=== PATIENT | female | born 1995 | race Caucasian/White ===

== ENCOUNTER 2020-03-14 07:25 | Outpatient (CLI) | payer OTHER ==
[~2020-03-14] VITALS: Ht 167.6 cm; Wt 48.7 kg
[~2020-03-14 07:25] MED LIST: ACID REDUCER; ATARAX 25MG25 MG/TAB PO; BACTRIM DS 8001 TAB PO; CEPHALEXIN500 M1 PO; CIPRODEX OT; DIFLUCAN150 MG PO; DOXYCYCLINE 10100 MG PO; DULCOLAX S10 MG/SUPP RC; FLAGYL 250250 MG/TAB PO; KLOR-CON 88 ME1 PO; LEVAQUIN 5500 MG/TA1 PO; LEVEMIR100 U/ML SQ; LEXAPRO 5MG5 MG PO; MIRALAX510G PO; MONODOX100 PO; MULTI VITAMINS1 TAB PO; NEURONTIN300 MG/CAP PO; NORCO 325 MG-51 TAB PO; NOVOLOG 100U100 U/M1 SQ; NOVOLOG FLEX100 U/ML SQ; POTASSIUM; TENORMIN 5050 MG/TAB PO; ULTRAM 50MG TAB50 MG PO; VITAMIN D 400400 IU PO; ZOFRAN ODT4 MG PO
[2020-03-14 08:29] VITALS: BP 107/71; PULSE 136
[2020-03-14] MEDS ORDERED: CELEBREX 200MG200 MG PO (08:40)
[2020-03-14] MEDS ORDERED: TYLENOL 325MG325 MG PO (08:41)
[2020-03-14] MEDS ORDERED: NEURONTIN300 MG/CAP PO (08:41)
[2020-03-14] MEDS ORDERED: MIRALAX PA17 GM/Dose PO (08:44)
[2020-03-14] MEDS ORDERED: CORLANOR5 MG PO (10:01)
[2020-03-14 10:10] VITALS: BP 143/90; PULSE 123
[2020-03-14 10:20] VITALS: BP 144/82; PULSE 126
--- NOTE | 2020-03-14 10:40 | NUR ---
Accucheck obtained,results reported to Dr castelan.No new orders.per Dr Castelan pt may go home and manage bs at home.
--- NOTE | 2020-03-14 10:50 | NUR ---
Discharge instructions given to pt.pt verbalizes understanding.INT removed,catheter tip intact.Pt escorted out via wheelchair.
--- NOTE | 2020-03-14 11:00 | NUR ---
Pt escorted out by this nurse via wheelchair.
== END 2020-03-14 11:27 | disposition home or self-care (01) ==
LOC: COL.CAR 07:25
DX: R00.0 Tachycardia, unspecified (principal); E11.9 Type 2 diabetes mellitus without complications; R55 Syncope and collapse; G89.29 Other chronic pain; Z92.21 Personal history of antineoplastic chemotherapy; Z88.1 Allergy status to other antibiotic agents; Z88.0 Allergy status to penicillin; Z88.8 Allergy status to other drugs, medicaments and biological substances; Z79.4 Long term (current) use of insulin
CPT/HCPCS: J2250

== ENCOUNTER 2020-04-10 07:54 | Emergency (ER) | payer OTHER ==
[~2020-04-10] VITALS: Ht 167.6 cm; Wt 52.7 kg
[~2020-04-10 07:54] MED LIST changes: -DOXYCYCLINE HY100 MG PO; -ELMIRON 10100 MG/CA1; -LANTUS100 U/ML SQ; -ZOFRAN 4MG T4 MG/TAB PO
[2020-04-10 07:57] VITALS: TEMP 98.2
[2020-04-10] MEDS ORDERED: DOXYCYCLINE HY100 MG PO (08:22)
[2020-04-10] MEDS ORDERED: LANTUS100 U/ML SQ (08:24)
[2020-04-10] MEDS ORDERED: ELMIRON 10100 MG/CA1 (08:25)
[2020-04-10 08:49] LABS: PH 5 (5-8); SQUAMOUS EPITHELIAL 0-2 /hpf; URINE APPEARANCE Clear; URINE BACTERIA Rare /hpf; URINE BILIRUBIN Negative (NEGATIVE); URINE BLOOD Negative (NEGATIVE); URINE COLOR Colorless; URINE GLUCOSE 1+ (NEGATIVE); URINE KETONE Negative (NEGATIVE); URINE LEUKOCYTE ESTERASE Negative (NEGATIVE); URINE NITRATE Negative (NEGATIVE); URINE PROTEIN(semi-quant) Negative (NEGATIVE); URINE RBC 0-2 /hpf; URINE UROBILINOGEN Negative (NEGATIVE); URINE WBC 0-2 /hpf
[2020-04-10 09:01] LABS: BASO % 0.4 % (0.0-2.0); EOS % 0.7 % (0-4.0); GRAN # 1.5 (1.4-6.5); GRAN % 27.7 % (42.2-75.2); HEMOGLOBIN 12.2 g/dl (12.5-16.0); LYMPH # 3.6 (1.2-3.4); LYMPH % 65.4 % (20.0-51.0); MEAN CELL VOLUME 93 fl (80.0-100.0); MEAN CORPUSCULAR HEMOGLOBIN 32 pg (27.0-31.0); MEAN CORPUSCULAR HGB CONC 34 g/dl (33.0-37.0); MEAN PLATELET VOLUME 10.4 fl (7.4-10.4); MONO # 0.3 (0.1-0.6); MONO % 5.6 % (1.7-9.3); PLATELET COUNT 293 K/mm3 (130-400); RED BLOOD COUNT 3.84 M/mm3 (4.10-5.30); REDCELL DISTRIBUTION WIDTH-CV 12.6 % (11.5-14.5)
[2020-04-10 09:03] LABS: HEMATOCRIT 35.7 % (37.0-47.0)
[2020-04-10 09:06] LABS: BILIRUBIN,TOTAL 0.4 mg/dL (0.0-1.0); CALCIUM 9.3 mg/dL (8.4-10.2); CREATININE, serum 0.33 (0.52-1.25); POTASSIUM 4.4 mmol/L (3.4-5.0); TOTAL PROTEIN 6.7 gm/dL (6.4-8.2)
[2020-04-10] MEDS ORDERED: NORCO 325 MG-51 TAB PO (09:43)
[2020-04-10] MEDS ORDERED: ZOFRAN 4MG T4 MG/TAB PO (09:43)
[2020-04-10 09:52] VITALS: BP 141/108; PULSE 103
[2020-04-10 10:23] LABS: COLLECTION METHOD CLEAN CATCH
== END 2020-04-10 09:55 | disposition home or self-care (01) ==
LOC: COL.ER 07:54
PROVIDERS: Nurse Practitioner Primary Care
DX: R10.31 Right lower quadrant pain (principal); E10.9 Type 1 diabetes mellitus without complications
CPT/HCPCS: J2270; J2405

== ENCOUNTER → 2020-04-10 | Outpatient (CLI) | payer OTHER ==
[~2020-04-10] MED LIST changes: +CELEBREX 200MG200 MG PO; +CORLANOR5 MG PO; +DOXYCYCLINE HY100 MG PO; +ELMIRON 10100 MG/CA1; +LANTUS100 U/ML SQ; +MIRALAX PA17 GM/Dose PO; +TYLENOL 325MG325 MG PO; +ZOFRAN 4MG T4 MG/TAB PO
== END ==
LOC: COL.RAD 06:43
DX: R16.0 Hepatomegaly, not elsewhere classified (principal); M54.5 Low back pain
CPT/HCPCS: Q9967

== ENCOUNTER 2020-05-05 20:05 | Emergency (ER) | payer OTHER ==
[~2020-05-05] VITALS: Ht 167.6 cm; Wt 54.5 kg
[~2020-05-05 20:05] MED LIST changes: +DOXYCYCLINE HY100 MG PO; +ELMIRON 10100 MG/CA1; +LANTUS100 U/ML SQ; +ZOFRAN 4MG T4 MG/TAB PO
[2020-05-05 20:10] VITALS: TEMP 99.7
[2020-05-05 20:37] LABS: BASO % 0.3 % (0.0-2.0); EOS # 0.1 (0.0-0.7); GRAN # 2.9 (1.4-6.5); GRAN % 41.1 % (42.2-75.2); HEMATOCRIT 39.3 % (37.0-47.0); HEMOGLOBIN 13.1 g/dl (12.5-16.0); LYMPH # 3.7 (1.2-3.4); LYMPH % 51.8 % (20.0-51.0); MEAN CELL VOLUME 94 fl (80.0-100.0); MEAN CORPUSCULAR HEMOGLOBIN 31 pg (27.0-31.0); MEAN CORPUSCULAR HGB CONC 33 g/dl (33.0-37.0); MEAN PLATELET VOLUME 10.4 fl (7.4-10.4); MONO # 0.4 (0.1-0.6); MONO % 5.5 % (1.7-9.3); PLATELET COUNT 289 K/mm3 (130-400); REDCELL DISTRIBUTION WIDTH-CV 12.6 % (11.5-14.5)
[2020-05-05 20:46] LABS: ALANINE AMINOTRANSFERASE 17 U/L (4-34); ALBUMIN 4.1 gm/dL (3.5-5.0); ALKALINE PHOSPHATASE 104 U/L (50-136); ANION GAP 10 mmol/L (7-16); AST,SGOT 23 U/L (15-37); BILIRUBIN,TOTAL 0.3 mg/dL (0.0-1.0); BLOOD UREA NITROGEN 18 mg/dL (7-17); CALCIUM 9.1 mg/dL (8.4-10.2); CARBON DIOXIDE 23 mmol/L (22-30); CHLORIDE 104 mmol/L (98-107); CREATININE, serum 0.43 (0.52-1.25); GLUCOSE 265 mg/dL (74-106); POTASSIUM 3.8 mmol/L (3.4-5.0); SODIUM 137 mmol/L (137-145)
[2020-05-05 21:11] LABS: LIPASE 36 U/L (23-300)
[2020-05-05 21:13] LABS: C-REACTIVE PROTEIN < 0.5 mg/dL (0.0-0.9)
[2020-05-05 21:28] LABS: ACETONE,SERUM NEGATIVE
[2020-05-06 02:35] VITALS: BP 137/100; PULSE 110
== END 2020-05-06 02:35 | disposition home or self-care (01) ==
LOC: COL.ER 20:05
PROVIDERS: Nurse Practitioner
DX: R10.31 Right lower quadrant pain (principal); R33.9 Retention of urine, unspecified; G89.29 Other chronic pain; E10.9 Type 1 diabetes mellitus without complications
CPT/HCPCS: J2060; J2270; J2405; J7030

== ENCOUNTER → 2020-05-18 | Emergency (ER) | payer OTHER ==
[~2020-05-18] VITALS: Ht 167.6 cm; Wt 54.5 kg
[2020-05-18 11:49] VITALS: BP 122/79; PULSE 111; TEMP 97.8
== END ==
LOC: COL.ER 11:43
DX: Z53.29 Procedure and treatment not carried out because of patient's decision for other reasons (principal); M54.5 Low back pain

== ENCOUNTER 2020-05-23 00:58 | Emergency (ER) | payer OTHER ==
[~2020-05-23] VITALS: Ht 167.6 cm; Wt 55.9 kg
[2020-05-23 01:05] VITALS: TEMP 97.5
[2020-05-23 01:37] LABS: COLLECTION METHOD CLEAN CATCH
[2020-05-23 01:41] LABS: BASO % 0.4 % (0.0-2.0); EOS % 0.3 % (0-4.0); GRAN % 40.9 % (42.2-75.2); HEMATOCRIT 38.7 % (37.0-47.0); HEMOGLOBIN 13.5 g/dl (12.5-16.0); LYMPH # 3.8 (1.2-3.4); LYMPH % 51.9 % (20.0-51.0); MEAN CELL VOLUME 89 fl (80.0-100.0); MEAN CORPUSCULAR HEMOGLOBIN 31 pg (27.0-31.0); MEAN CORPUSCULAR HGB CONC 35 g/dl (33.0-37.0); MEAN PLATELET VOLUME 11.3 fl (7.4-10.4); MONO # 0.5 (0.1-0.6); MONO % 6.4 % (1.7-9.3); PLATELET COUNT 282 K/mm3 (130-400); RED BLOOD COUNT 4.33 M/mm3 (4.10-5.30); REDCELL DISTRIBUTION WIDTH-CV 12.1 % (11.5-14.5)
[2020-05-23 01:50] LABS: PH 8 (5-8); SQUAMOUS EPITHELIAL 0-2 /hpf; URINE APPEARANCE Clear; URINE BACTERIA Rare /hpf; URINE BILIRUBIN Negative (NEGATIVE); URINE BLOOD Negative (NEGATIVE); URINE COLOR Straw; URINE GLUCOSE 3+ (NEGATIVE); URINE KETONE 1+ (NEGATIVE); URINE LEUKOCYTE ESTERASE Negative (NEGATIVE); URINE NITRATE Negative (NEGATIVE); URINE PROTEIN(semi-quant) Negative (NEGATIVE); URINE RBC 0-2 /hpf; URINE UROBILINOGEN Negative (NEGATIVE)
[2020-05-23 02:01] LABS: ACETONE,SERUM NEGATIVE
[2020-05-23 02:10] LABS: ALANINE AMINOTRANSFERASE 15 U/L (4-34); ALBUMIN 4.3 gm/dL (3.5-5.0); ALKALINE PHOSPHATASE 121 U/L (50-136); ANION GAP 10 mmol/L (7-16); AST,SGOT 22 U/L (15-37); BILIRUBIN,TOTAL 0.5 mg/dL (0.0-1.0); BLOOD UREA NITROGEN 16 mg/dL (7-17); CALCIUM 9.7 mg/dL (8.4-10.2); CARBON DIOXIDE 28 mmol/L (22-30); CHLORIDE 97 mmol/L (98-107); CREATININE, serum 0.44 (0.52-1.25); POTASSIUM 4.4 mmol/L (3.4-5.0); SODIUM 135 mmol/L (137-145); TOTAL PROTEIN 7.2 gm/dL (6.4-8.2)
[2020-05-23 02:21] LABS: GLUCOSE 558 mg/dL (74-106)
[2020-05-23 05:00] VITALS: BP 136/88; PULSE 127
== END 2020-05-23 05:05 | disposition home or self-care (01) ==
LOC: COL.ER 00:58
PROVIDERS: Emergency Medicine
DX: E10.65 Type 1 diabetes mellitus with hyperglycemia (principal); R11.2 Nausea with vomiting, unspecified; G89.29 Other chronic pain; R10.31 Right lower quadrant pain; R50.9 Fever, unspecified; Z32.02 Encounter for pregnancy test, result negative; Z79.4 Long term (current) use of insulin; Z88.0 Allergy status to penicillin; Z88.8 Allergy status to other drugs, medicaments and biological substances; Z88.1 Allergy status to other antibiotic agents
CPT/HCPCS: J1170; J1200; J1790; J1815; J7030

== ENCOUNTER 2020-09-11 15:15 | Outpatient (RCR) | payer BC, OTHER | END 2020-09-16 | disposition home or self-care (01) | LOC: WSC | DX: M54.10 Radiculopathy, site unspecified (principal) ==

== ENCOUNTER 2021-05-11 20:39 | Emergency (ER) | payer BC, OTHER ==
[~2021-05-11] VITALS: Ht 167.6 cm; Wt 52.3 kg
[2021-05-11 20:53] LABS: COLLECTION METHOD CLEAN CATCH
[2021-05-11 20:58] VITALS: TEMP 98.1
[2021-05-11 21:04] LABS: MUCOUS Present /lpf; PH 5 (5-8); SQUAMOUS EPITHELIAL 0-2 /hpf; URINE APPEARANCE Clear; URINE BACTERIA Rare /hpf; URINE BILIRUBIN Negative (NEGATIVE); URINE BLOOD 1+ (NEGATIVE); URINE COLOR Straw; URINE GLUCOSE 3+ (NEGATIVE); URINE KETONE 2+ (NEGATIVE); URINE LEUKOCYTE ESTERASE Negative (NEGATIVE); URINE NITRATE Negative (NEGATIVE); URINE PROTEIN(semi-quant) Negative (NEGATIVE); URINE UROBILINOGEN Negative (NEGATIVE)
[2021-05-11 21:19] LABS: BASO # 0.1 (0.0-0.2); BASO % 0.5 % (0.0-2.0); EOS % 0.2 % (0-4.0); GRAN # 7.7 (1.4-6.5); GRAN % 66.5 % (42.2-75.2); HEMATOCRIT 41.6 % (37.0-47.0); LYMPH # 3.2 (1.2-3.4); LYMPH % 27.6 % (20.0-51.0); MEAN CELL VOLUME 89 fl (80.0-100.0); MEAN CORPUSCULAR HEMOGLOBIN 30 pg (27.0-31.0); MEAN CORPUSCULAR HGB CONC 34 g/dl (33.0-37.0); MEAN PLATELET VOLUME 11.4 fl (7.4-10.4); MONO # 0.6 (0.1-0.6); MONO % 4.8 % (1.7-9.3); PLATELET COUNT 321 K/mm3 (130-400); RED BLOOD COUNT 4.68 M/mm3 (4.10-5.30); REDCELL DISTRIBUTION WIDTH-CV 13.2 % (11.5-14.5)
[2021-05-11 21:30] LABS: ALANINE AMINOTRANSFERASE 20 U/L (4-34); ALBUMIN 5.2 gm/dL (3.5-5.0); ALKALINE PHOSPHATASE 212 U/L (50-136); ANION GAP 27 mmol/L (7-16); AST,SGOT 25 U/L (15-37); BILIRUBIN,TOTAL 0.6 mg/dL (0.0-1.0); BLOOD UREA NITROGEN 16 mg/dL (7-17); CALCIUM 9.4 mg/dL (8.4-10.2); CHLORIDE 92 mmol/L (98-107); CREATININE, serum 0.75 (0.52-1.25); LIPASE 45 U/L (23-300); POTASSIUM 5.1 mmol/L (3.4-5.0); SODIUM 129 mmol/L (137-145); TOTAL PROTEIN 8.5 gm/dL (6.4-8.2)
[2021-05-11 21:32] LABS: CARBON DIOXIDE 10 mmol/L (22-30)
[2021-05-11 21:44] LABS: GLUCOSE 741 mg/dL (74-106)
[2021-05-11 21:53] LABS: ACETONE,SERUM SMALL
[2021-05-12 00:19] VITALS: BP 133/76; PULSE 121
== END 2021-05-12 00:19 | disposition short-term general hospital (02) ==
LOC: COL.ER 20:39
PROVIDERS: Emergency Medicine
DX: E10.10 Type 1 diabetes mellitus with ketoacidosis without coma (principal); Z20.822 Contact with and (suspected) exposure to COVID-19; Z79.4 Long term (current) use of insulin
CPT/HCPCS: J1815; J2270; J2405; J2765; J7030

== ENCOUNTER 2021-08-25 16:52 | Emergency (ER) | payer SELFPAY ==
[~2021-08-25] VITALS: Ht 167.6 cm; Wt 61.4 kg
[2021-08-25 17:13] VITALS: TEMP 98
[2021-08-25 19:19] LABS: ACETONE,SERUM SMALL
[2021-08-25 19:22] LABS: ALANINE AMINOTRANSFERASE 13 U/L (0-55); ALBUMIN 3.9 gm/dL (3.5-5.0); ALKALINE PHOSPHATASE 177 U/L (40-150); ANION GAP 12 mmol/L (7-16); AST,SGOT 17 U/L (5-34); BILIRUBIN,TOTAL 0.5 mg/dL (0.2-1.2); BLOOD UREA NITROGEN 14 mg/dL (7-19); CALCIUM 8.8 mg/dL (8.4-10.2); CARBON DIOXIDE 24 mmol/L (22-29); CHLORIDE 96 mmol/L (98-107); CREATININE, serum 0.93 mg/dL (0.57-1.11); POTASSIUM 4.2 mmol/L (3.5-4.5); SODIUM 132 mmol/L (136-145); TOTAL PROTEIN 7.2 gm/dL (6.2-8.1)
[2021-08-25 19:28] LABS: GLUCOSE 498 mg/dL (70-99)
[2021-08-25] MEDS ORDERED: FLEXERIL 1010 MG/TAB PO (20:31)
[2021-08-25 21:20] VITALS: BP 144/70; PULSE 76
== END 2021-08-25 21:20 | disposition home or self-care (01) ==
LOC: COL.ER 16:52
PROVIDERS: Nurse Practitioner
DX: S16.1XXA Strain of muscle, fascia and tendon at neck level, initial encounter (principal); S46.912A Strain of unspecified muscle, fascia and tendon at shoulder and upper arm level, left arm, initial encounter; E10.65 Type 1 diabetes mellitus with hyperglycemia; Z79.4 Long term (current) use of insulin; Z86.69 Personal history of other diseases of the nervous system and sense organs; Y04.0XXA Assault by unarmed brawl or fight, initial encounter; Y92.59 Other trade areas as the place of occurrence of the external cause; Y99.0 Civilian activity done for income or pay
CPT/HCPCS: J1815; J7030

== ENCOUNTER 2021-09-30 23:29 | Inpatient (IN) | payer BC ==
[~2021-09-30] VITALS: Ht 167.6 cm; Wt 64.5 kg
[~2021-09-30 23:29] MED LIST changes: +FLEXERIL 1010 MG/TAB PO
[2021-10-01] VITALS (172 sets, daily range): BP systolic 109–145; BP diastolic 58–107; PULSE 119–127; TEMP 98–101.6; O2SAT 93–100
[2021-10-01 00:58] LABS: BASO % 0.5 % (0.0-2.0); EOS % 0.3 % (0.0-4.0); GRAN # 4.2 K/mm3 (1.4-6.5); GRAN % 73.3 % (42.2-75.2); HEMATOCRIT 40.2 % (37.0-47.0); HEMOGLOBIN 13.7 g/dl (12.5-16.0); LYMPH # 0.9 K/mm3 (1.2-3.4); LYMPH % 15.6 % (20.0-51.0); MEAN CELL VOLUME 90 fl (80.0-100.0); MEAN CORPUSCULAR HEMOGLOBIN 31 pg (27-31); MEAN CORPUSCULAR HGB CONC 34 g/dl (33.0-37.0); MEAN PLATELET VOLUME 10.7 fl (7.4-10.4); MONO # 0.5 K/mm3 (0.1-0.6); MONO % 9.3 % (1.7-9.3); PLATELET COUNT 272 K/mm3 (130-400); RED BLOOD COUNT 4.49 M/mm3 (4.10-5.30); REDCELL DISTRIBUTION WIDTH-CV 14.8 % (11.5-14.5)
[2021-10-01 01:13] LABS: COLLECTION METHOD CLEAN CATCH
[2021-10-01 01:17] LABS: ALBUMIN 4.2 gm/dL (3.5-5.0); BILIRUBIN,TOTAL 0.3 mg/dL (0.2-1.2); C-REACTIVE PROTEIN 0.26 mg/dL (0.00-0.50); CALCIUM 8.6 mg/dL (8.4-10.2); CREATININE, serum 1.37 mg/dL (0.57-1.11); MAGNESIUM 1.9 mg/dL (1.6-2.6); TOTAL PROTEIN 7.8 gm/dL (6.2-8.1)
[2021-10-01 01:18] LABS: PH 5 (5-8); SQUAMOUS EPITHELIAL 0-2 /hpf (0-10); URINE APPEARANCE Clear (CLEAR/HAZY); URINE BACTERIA None Seen /hpf (NONE SEEN); URINE BILIRUBIN Negative (NEGATIVE); URINE BLOOD 2+ (NEGATIVE); URINE GLUCOSE 3+ (NEGATIVE); URINE KETONE 2+ (NEGATIVE); URINE LEUKOCYTE ESTERASE Negative (NEGATIVE); URINE NITRATE Negative (NEGATIVE); URINE PROTEIN(semi-quant) Negative (NEGATIVE); URINE UROBILINOGEN Negative (NEGATIVE)
[2021-10-01 01:21] LABS: URINE COLOR Yellow (YELLOW)
[2021-10-01 01:53] LABS: ARTERIAL BLD GAS O2 SATURATION 97.6 % (92-100); ARTERIAL BLD GAS TCO2 CT 7.4; ARTERIAL BLOOD GAS BASE EXCESS -18.9 (-2-2); ARTERIAL BLOOD GAS HCO3 6.9 meq/L (22-26); ARTERIAL BLOOD GAS PO2 108.3 mmHg (80-100)
[2021-10-01 01:54] LABS: ARTERIAL BLOOD GAS PCO2 17.8 mmHg (35-45)
[2021-10-01 05:11] LABS: CALCIUM 7.7 mg/dL (8.4-10.2); CREATININE, serum 0.95 mg/dL (0.57-1.11); POTASSIUM 3.5 mmol/L (3.5-4.5)
[2021-10-01 09:03] LABS: CALCIUM 7.5 mg/dL (8.4-10.2); CREATININE, serum 0.81 mg/dL (0.57-1.11); POTASSIUM 3.5 mmol/L (3.5-4.5)
[2021-10-01 12:28] LABS: CALCIUM 7.4 mg/dL (8.4-10.2); CREATININE, serum 0.75 mg/dL (0.57-1.11); POTASSIUM 3.8 mmol/L (3.5-4.5)
--- NOTE | 2021-10-01 19:47 | NUR ---
PM ASSESSMENT COMPLETE. PT SLEEPING, AROUSABLE BUT DROWSY. ANSWERS QUESTIONS APPROPRIATELY. REPORTS SOME PAIN TO SIDE. HR NOTED TO BE 125, TEMP 101.6. 1000MG TYLENOL GIVEN PER PRN ORDER. PT ALSO NAUSEATED, NO EMESIS. ZOFRAN GIVEN AT THIS TIME. WILL MONITOR FOR EFFECT. PULSE OXIMETRY CHECKED WITH HANDHELD DEVICE, 97% ON ROOM AIR (PT STATES DOES NOT WANT TO WEAR FINGER PROBE). WILL CONTINUE TO MONITOR.
[2021-10-01] MEDS ORDERED: NOVOLOG 100U100 U/M1 SQ (20:57)
[2021-10-01 21:41] LABS: CALCIUM 7.5 mg/dL (8.4-10.2); CREATININE, serum 0.89 mg/dL (0.57-1.11); POTASSIUM 3.7 mmol/L (3.5-4.5)
[2021-10-01 23:03] LABS: CALCIUM 7.5 mg/dL (8.4-10.2); CREATININE, serum 0.92 mg/dL (0.57-1.11); POTASSIUM 3.6 mmol/L (3.5-4.5)
[2021-10-02] VITALS (253 sets, daily range): BP systolic 115–139; BP diastolic 53–100; PULSE 71–120; TEMP 98.1–99.7; O2SAT 96–100
[2021-10-02 02:44] LABS: CALCIUM 7.7 mg/dL (8.4-10.2); CREATININE, serum 0.77 mg/dL (0.57-1.11); POTASSIUM 3.4 mmol/L (3.5-4.5)
--- NOTE | 2021-10-02 07:10 | NUR ---
RECEIVED REPORT FROM INDIRA BUENROSTRO. PT ON RA. AMBULATES BY SELF TO TOILET. VSS. CALL LIGHT WITHIN REACH.
--- NOTE | 2021-10-02 09:00 | NUR ---
SPOKE WITH DR MILTON AND BRANDON NOEL ABOUT GETTING NEW LABS THIS AM AND THEN IF SHE CAN TRANSFER UPSTAIRS IF OK. ALSO LET PROVIDERS KNOW THAT PT IS C/O A LOT OF RT EAR PAIN.
[2021-10-02 09:52] LABS: BASO % 0.5 % (0.0-2.0); EOS % 0.2 % (0.0-4.0); GRAN # 2.1 K/mm3 (1.4-6.5); GRAN % 48.6 % (42.2-75.2); LYMPH # 1.7 K/mm3 (1.2-3.4); LYMPH % 40.8 % (20.0-51.0); MEAN CELL VOLUME 88 fl (80.0-100.0); MEAN CORPUSCULAR HGB CONC 35 g/dl (33.0-37.0); MEAN PLATELET VOLUME 10.7 fl (7.4-10.4); MONO # 0.4 K/mm3 (0.1-0.6); MONO % 9.7 % (1.7-9.3); PLATELET COUNT 175 K/mm3 (130-400); REDCELL DISTRIBUTION WIDTH-CV 15.1 % (11.5-14.5)
[2021-10-02 09:53] LABS: HEMATOCRIT 33.4 % (37.0-47.0); HEMOGLOBIN 11.7 g/dl (12.5-16.0); MEAN CORPUSCULAR HEMOGLOBIN 31 pg (27-31)
--- NOTE | 2021-10-02 10:08 | NUR ---
REPORT GIVEN TO INDIRA BOOKER. PT TRANSFERRED ON RA VIA WC TO 357. ALL PERSONAL BELONGINGS SENT WITH PT.
[2021-10-02 10:09] LABS: CALCIUM 7.5 mg/dL (8.4-10.2); CREATININE, serum 0.81 mg/dL (0.57-1.11); POTASSIUM 3.6 mmol/L (3.5-4.5)
--- NOTE | 2021-10-02 19:39 | NUR ---
PT HAS HAD UNEVENTFUL DAY. SHE HAS COMPLAINED OF MILD PAIN IN HER EAR FROM HER EAR INFECTION AND HAS HAD SOME DRAINAGE THAT "GAGS HER". OTHER THAN THOSE ISSUES, THERE IS NO OTHER CONCERNS.
--- NOTE | 2021-10-02 21:35 | NUR ---
ALERT AND OX4. RATING PAIN /10 TO RT EAR. EAR GTT AND PAPO FOR PAIN. PM MEDS GIVEN. REF MID HEPARIN TONIGHT, IT "HURTS". CALL LIGHT WI REACH. IV FLUIDS INFUSING PER ORDER. CALL LIGHT WI REACH.
[2021-10-03 00:13] VITALS: BP 145/91; PULSE 115; TEMP 99.1
[2021-10-03 04:44] VITALS: BP 149/98; PULSE 107; TEMP 98.9
[2021-10-03 08:00] VITALS: BP 138/83; PULSE 81; TEMP 97.6
--- NOTE | 2021-10-03 08:00 | NUR ---
Patient laying in bed with complaints of pain in right ear. Nurse informed the patient of the ear drops. Will notified the doctor. A&Ox4. VSS. IV CDI, fluids infusing. Denies discomfort. Nurse encouraging patient to increase PO intake. Patient verbalized an understanding. Droplet/contact precautions in place. No further needs expressed. Call light within reach
[2021-10-03 12:00] VITALS: BP 149/96; PULSE 107; TEMP 98.1
--- NOTE | 2021-10-03 14:17 | NUR ---
The patient is COVID positive. SW contacted the patient to discuss discharge plan. The patient lives in [place] with a friend. She reports independence with ADLs and does not have any DME. The patient's PCP is Dr. Tanvi Uriarte on [address] and she receives her medications from [facility] in [facility]. She reports no difficulties obtaining her meds. She states that Dr. Rosa Ordaz in [place] manages her diabetes. The patient does not have a DPOA-HC in EMR, but she states that she does have one completed and that it designates her father, Rachid Figueroa (ph#[phone], [place]). She is unsure where the form is at. SW inquired if she would be interested in completing a new one while here. She declined. The patient reports that her EMR contacts: Santana Fernandes (ph#[phone]), is her boyfriend and Mily Duke is her good friend. The patient plans on returning home with her friend upon discharge. No additional needs at this time. *Discharge plan: home with friend*
--- NOTE | 2021-10-03 18:41 | NUR ---
Patient has had several episodes of nausea and vomitting. Scheduled nausea medication given. Patient A&Ox4. VSS. IV CDI, fluids infusing. Complaints of RT ear pain, ENT consulted and placed a wick in the right ear. Droplet/contact precautions in place. No further needs expressed. Call light within reach
[2021-10-03 19:53] VITALS: BP 147/99; PULSE 90; TEMP 98
--- NOTE | 2021-10-03 21:37 | NUR ---
ALERT AND OX4. DENIES SOA CHEST PAIN OR DIZZY. EAR WICK PLACED TODAY AND ANTIBOITICS, STATES FEELING A LITTLE BETTER. WANTS A SHOWER TONIGHT. IVF GOING PER ORDER. CALL LIGHT WI REACH. NEEDS MET.
--- NOTE | 2021-10-03 21:42 | NUR ---
pt did refuse heparin for the night dose. nausea is improving was able to hold dinner down.
[2021-10-04 00:28] VITALS: BP 123/81; PULSE 97; TEMP 98.4
--- NOTE | 2021-10-04 04:24 | NUR ---
PT C/O RT EAR PAIN THINKS IT MORE RELATED TO WICK IN EAR STATES IT PUTS PRESSURE THERE AND I CANT LAY ON IT. WANTS IT REMOVED. CALLED WILLIAM TAYLOR, JANUARY REMOVED. ENC PAIN MEDICINE. PT TOOK W ZOFRAN AND SNACK.
[2021-10-04 04:54] VITALS: BP 147/89; PULSE 94; TEMP 98.5
--- NOTE | 2021-10-04 06:04 | NUR ---
RESTED THOUGHT NIGHT WITHOUT INCIDENT. PAIN MEDS WORKING FOR EAR PAIN. HOPES TO GO HOME TODAY. NEEDS MET.
--- NOTE | 2021-10-04 08:01 | NUR ---
Pt. progressing w/ plan of care. Pt. reports ear pain this AM and requesting tylenol. Pt. also reporting nausea. Pt. reports she has been refusing the heparin. Dr. Aleman notified regarding pt.'s tylenol request and this RN informed pt. she has been refusing heparin. New orders obtained. Pt. requesting sprite zero. Plan for this RN to give AM meds, all other needs addressed.
[2021-10-04 08:10] VITALS: BP 131/86; PULSE 95; TEMP 97.9
[2021-10-04 12:27] VITALS: BP 119/74; PULSE 91; TEMP 97.7
--- NOTE | 2021-10-04 16:02 | NUR ---
Ear wick was removed this AM prior to this nurse caring for patient. This was reviewed with BRANDON Padron, plan for Nereida to let this RN know what Dr. Aleman says regarding pt.'s ear wick.
[2021-10-04 16:06] VITALS: BP 123/78; PULSE 95; TEMP 98.7
--- NOTE | 2021-10-04 18:53 | NUR ---
Afternoon 1600 blood sugar was 88. Pt. vomited and zofran given with good effect. Pt. reports she may "go down" even more. This RN provided pt. juice and snacks. Pt. drank 4oz juice.
[2021-10-04 19:50] VITALS: BP 135/89; PULSE 85; TEMP 98
--- NOTE | 2021-10-04 20:58 | NUR ---
ALERT AND OX4. DNIES SOA CHEST PAIN OR DIZZY. SOME NAUSEA TODAY RELATED TO ANTIBOTIC SHE BELIEVES. PM MEDS GIVEN. SHOWERING. CALL LIGHT WI REACH.
[2021-10-05 00:31] VITALS: BP 143/92; PULSE 99; TEMP 98.2
--- NOTE | 2021-10-05 03:39 | NUR ---
patient rested quietly throughout the night cleaner, call bello w/i reach, no s/s of hypo/hyper glycemia, indendent in room, updated on plan of care, will continue to monitor.
[2021-10-05 04:42] VITALS: BP 138/85; PULSE 95; TEMP 98
[2021-10-05 08:13] VITALS: BP 141/95; PULSE 96; TEMP 98
--- NOTE | 2021-10-05 08:41 | NUR ---
Pt. reporting pain to her right ear. Pt. reports drainage from overnight, light yellow in color noted on tissues. Pt.'s CBG this am was 82, Dr. Gee notified, Dr. Gee would like pt. to get scheduled insulin with meal- five units, and hold sliding scale. Dr. Gee notified about pt.'s ear, plan for Dr. Gee to discuss with this RN during rounds.
--- NOTE | 2021-10-05 09:54 | NUR ---
Pt. reports her ear is throbbing and she is crying in pain. PRN oxycodone administered w/ PRN zofran because pt. reports oxycodone makes her nauseated. Pt. reports ear is "popping" as well. Dr. Gee notified on the telephone. Dr. Gaffney notified on the telephone. Dr. Gaffney reports wick should not have been removed, however, the ear drops will help. Dr. Gaffney reports the ear drops will not likely cause pain and the pt. should receive the drops in order to get better. Plan for this RN to encourage pt. to take the ear drops and update Dr. Gee with plan of care.
[2021-10-05 10:58] VITALS: BP 121/79; PULSE 99; TEMP 98.1
[2021-10-05] MEDS ORDERED: LEVAQUIN 5500 MG/TA1 PO (16:01)
[2021-10-05] MEDS ORDERED: CIPRODEX OT (16:06)
[2021-10-05] MEDS ORDERED: NOVOLOG 100U100 U/M1 SQ ×2 (16:07→17:50)
[2021-10-05] MEDS ORDERED: ROXICODONE 55 MG/TAB PO (16:10)
[2021-10-05 16:43] VITALS: BP 134/97; PULSE 103; TEMP 98.1
[2021-10-05] MEDS ORDERED: B-D SAFETY GLID1 DE1 SQ (17:50)
[2021-10-05] MEDS ORDERED: GLUCOSE TEST ST1 DEV MC (17:50)
[2021-10-05] MEDS ORDERED: LANCETS MC (17:50)
[2021-10-05] MEDS ORDERED: FREESTYLE PREC1 EAC5 MC (17:50)
[2021-10-05] MEDS ORDERED: BD ALCOHOL1 SWA MC (17:50)
[2021-10-05] MEDS ORDERED: GLUCAGON EMERGEN1 M1 SQ (17:50)
[2021-10-05] MEDS ORDERED: GLUTOSE 1515 GM PO ×2 (17:50)
--- NOTE | 2021-10-05 18:16 | NUR ---
Pt. discharged home. Both IV's removed, site c/d/i. All paperwork reviewed with patient. All questions answered. Pt. left floor with [facility] staff member Jessica.
== END 2021-10-05 18:30 | disposition home or self-care (01) | DRG 637 ==
LOC: COL.ER 23:29 → ICU 10-01 02:16 → MEDICAL 10-02 10:19
PROVIDERS: Emergency Medicine; Nurse Practitioner Family; Physician Assistant; Student in an Organized Health Care Education/Training Program; ADMIT Internal Medicine
DX: E10.10 Type 1 diabetes mellitus with ketoacidosis without coma (principal); U07.1 COVID-19; N17.9 Acute kidney failure, unspecified; G89.29 Other chronic pain; N30.10 Interstitial cystitis (chronic) without hematuria; H60.91 Unspecified otitis externa, right ear; J32.4 Chronic pansinusitis; H70.91 Unspecified mastoiditis, right ear; H66.91 Otitis media, unspecified, right ear; R60.9 Edema, unspecified; E87.6 Hypokalemia; Z88.0 Allergy status to penicillin; Z23 Encounter for immunization
CPT/HCPCS: 99223-AI; 99232-AI; 99233-AI; 99239; J1644; J1815; J1956; J2270; J2405; J3010; J3475; J3480; J7030; J7120; J8540; Q9967

== ENCOUNTER 2021-12-02 17:15 | Inpatient (IN) | payer BC ==
[2021-12-02] VITALS (99 sets, daily range): BP systolic 119; BP diastolic 80; PULSE 111; TEMP 98.4; O2SAT 95–100
[~2021-12-02] VITALS: Ht 167.6 cm; Wt 63.2 kg
[~2021-12-02 17:15] MED LIST changes: +B-D SAFETY GLID1 DE1 SQ; +BD ALCOHOL1 SWA MC; +FREESTYLE PREC1 EAC5 MC; +GLUCAGON EMERGEN1 M1 SQ; +GLUCOSE TEST ST1 DEV MC; +GLUTOSE 1515 GM PO; +LANCETS MC; +ROXICODONE 55 MG/TAB PO
[2021-12-02 17:42] LABS: BASO % 0.4 % (0.0-2.0); EOS % 0.1 % (0.0-4.0); GRAN # 7.4 K/mm3 (1.4-6.5); HEMATOCRIT 43.2 % (37.0-47.0); LYMPH # 2.8 K/mm3 (1.2-3.4); LYMPH % 25.9 % (20.0-51.0); MEAN CELL VOLUME 92 fl (80.0-100.0); MEAN CORPUSCULAR HEMOGLOBIN 32 pg (27-31); MEAN CORPUSCULAR HGB CONC 35 g/dl (33.0-37.0); MEAN PLATELET VOLUME 11.2 fl (7.4-10.4); MONO # 0.6 K/mm3 (0.1-0.6); MONO % 5.1 % (1.7-9.3); PLATELET COUNT 308 K/mm3 (130-400); REDCELL DISTRIBUTION WIDTH-CV 13.2 % (11.5-14.5)
[2021-12-02 17:59] LABS: BILIRUBIN,TOTAL 0.3 mg/dL (0.2-1.2); C-REACTIVE PROTEIN 0.13 mg/dL (0.00-0.50); CALCIUM 9.2 mg/dL (8.4-10.2); CREATININE, serum 1.35 mg/dL (0.57-1.11); POTASSIUM 3.8 mmol/L (3.5-4.5)
[2021-12-02 18:10] LABS: COLLECTION METHOD CLEAN CATCH
[2021-12-02 18:20] LABS: MUCOUS Present (NOT PRESENT); PH 5 (5-8); URINE APPEARANCE Clear (CLEAR/HAZY); URINE BACTERIA None Seen /hpf (NONE SEEN); URINE BILIRUBIN Negative (NEGATIVE); URINE BLOOD 2+ (NEGATIVE); URINE COLOR Straw (YELLOW); URINE GLUCOSE 3+ (NEGATIVE); URINE KETONE 2+ (NEGATIVE); URINE LEUKOCYTE ESTERASE Negative (NEGATIVE); URINE NITRATE Negative (NEGATIVE); URINE PROTEIN(semi-quant) Negative (NEGATIVE); URINE RBC None Seen /hpf (0-2); URINE UROBILINOGEN Negative (NEGATIVE)
--- NOTE | 2021-12-02 20:50 | NUR ---
PT ARRIVED FROM ER VIA STRETCHER. PT MOVED TO ICU BED AND MONITORING. PT C/O STOMACH PAIN DURING MOVE TO BED, HOWEVER QUICKLY BACK TO SLEEP. ABLE TO AROUSE FOR FEW ADMISSION QUESTIONS, BUT VERY DROWSY. VSS WITH HR TACHY, RESP EVEN AND UNLABORED AND O2 SAT STABLE ON RA. INSULIN CURRENTLY INFUSING AT 5 UN/HR, WILL FOLLOW WITH Q1HR FS.
[2021-12-02] MEDS ORDERED: BACTRIM DS 8001 TAB PO (20:53)
--- NOTE | 2021-12-02 21:00 | NUR ---
PT REFUSED MRSA SWAB OF NARES AT THIS TIME.
[2021-12-02 21:21] LABS: PHOSPHOROUS 3.3 mg/dL (2.3-4.7)
[2021-12-02 22:03] LABS: CALCIUM 7.9 mg/dL (8.4-10.2); CREATININE, serum 0.96 mg/dL (0.57-1.11); POTASSIUM 3.9 mmol/L (3.5-4.5)
[2021-12-03] VITALS (308 sets, daily range): BP systolic 110–130; BP diastolic 71–93; PULSE 94–109; TEMP 97.2–98.5; O2SAT 67–100
[2021-12-03 01:50] LABS: CALCIUM 7.9 mg/dL (8.4-10.2); CREATININE, serum 0.82 mg/dL (0.57-1.11); POTASSIUM 3.9 mmol/L (3.5-4.5)
[2021-12-03 05:34] LABS: CALCIUM 8.1 mg/dL (8.4-10.2); CREATININE, serum 0.83 mg/dL (0.57-1.11); POTASSIUM 3.8 mmol/L (3.5-4.5)
--- NOTE | 2021-12-03 09:17 | NUR ---
steelworker met with patient to complete intake. Patient currently lives with roommates here in [place]. Patient is independent with her ADL's and does not utilize any DME to assist with ambulation. Patient has no home oxygen needs. Her PCP is Dr. Tanvi Uriarte and she uses [facility] for medications. Patient's legal NOK established is her ex (Mike Hope [phone]) who she is still legally to. Explained to the patient that he is her legal DPOA-HC at this time sice they are still . She verbalizes her understanding of this and does not wish to establish a new DPOA-HC at this time. Patient is planning on moving to the floor later today.
--- NOTE | 2021-12-03 13:45 | NUR ---
Pt arrived to room 311 from ICU at this time. Oriented pt and visitor to room. Med rec updated. Assessment complete. Pt A&Ox4. Vitals stable. Heart RRR. Lungs CTA. Skin CDI. Denies pain, nausea, dizziness, or other concerns. Denies needs at this time. Continuing to monitor.
--- NOTE | 2021-12-03 18:32 | NUR ---
Pt had uneventful afternoon. Last blood sugar 177 and 4 units of insulin given with dinner per orders. Requests PB&J sandwich as bedtime snack w/insulin. Denies further needs. Report given to retail shift manager RN.
[2021-12-04 00:41] VITALS: BP 104/66; PULSE 103; TEMP 97.9
[2021-12-04 04:20] VITALS: BP 133/90; PULSE 101; TEMP 97.7
--- NOTE | 2021-12-04 06:17 | NUR ---
PT HAD UNEVENTFUL NIGHT.
[2021-12-04 06:26] LABS: MEAN CELL VOLUME 95 fl (80.0-100.0); MEAN CORPUSCULAR HGB CONC 34 g/dl (33.0-37.0); MEAN PLATELET VOLUME 11.1 fl (7.4-10.4); PLATELET COUNT 215 K/mm3 (130-400); RED BLOOD COUNT 3.86 M/mm3 (4.10-5.30); REDCELL DISTRIBUTION WIDTH-CV 13.5 % (11.5-14.5)
[2021-12-04 06:45] LABS: CALCIUM 8.2 mg/dL (8.4-10.2); CREATININE, serum 0.65 mg/dL (0.57-1.11); POTASSIUM 3.6 mmol/L (3.5-4.5)
[2021-12-04 07:12] LABS: HEMATOCRIT 36.5 % (37.0-47.0); HEMOGLOBIN 12.4 g/dl (12.5-16.0); MEAN CORPUSCULAR HEMOGLOBIN 32 pg (27-31)
[2021-12-04 08:12] VITALS: BP 127/95; PULSE 104; TEMP 97.5
--- NOTE | 2021-12-04 08:54 | NUR ---
PT RESTING IN BED. MORNING MEDICATIONS GIVEN BY FRONT DESK CLERK. SHIFT ASSESSMENT COMPLETED. PT DENIES ANY PAIN OR NEEDS AT THIS TIME. UPDATED PT ON THE PLAN FOR THE DAY. PT EAGER TO D/C HOME. WILL CONTINUE TO MONITOR.
--- NOTE | 2021-12-04 09:20 | NUR ---
Initial visit; Patient resting, Weight Loss Physician offered God's blessings and patient was receptive to Weight Loss Physician keeping her in her prayers.
[2021-12-04 12:11] VITALS: BP 125/89; PULSE 100; TEMP 98
--- NOTE | 2021-12-04 12:47 | NUR ---
IV D/C. DISCHARGE INSTRUCTIONS GIVEN. WILL ESCORT PT DOWN.
--- NOTE | 2021-12-04 13:21 | NUR ---
Primary nurse was assisted with [phone] patient care by [employer] student Liz Jules and [employer] instructor Christina Mullen MSN, RN
== END 2021-12-04 12:48 | disposition home or self-care (01) | DRG 638 ==
LOC: COL.ER 17:15 → ICU 19:53 → MEDICAL 12-03 15:33
PROVIDERS: Nurse Practitioner Primary Care; Student in an Organized Health Care Education/Training Program; ADMIT Internal Medicine
DX: E10.10 Type 1 diabetes mellitus with ketoacidosis without coma (principal); N17.9 Acute kidney failure, unspecified; N30.10 Interstitial cystitis (chronic) without hematuria; R00.0 Tachycardia, unspecified; Z88.0 Allergy status to penicillin; Z23 Encounter for immunization
CPT/HCPCS: 99232-AI; 99239; J1815; J2270; J2405; J3480; J7030; Q9967

== ENCOUNTER → 2022-01-07 | Outpatient (CLI) | payer BC ==
[~2022-01-07] MED LIST changes: +FLAGYL500 MG PO; +MACROBID 1100 MG/CAP PO; +NOVOLIN N100 UNIT/1 SQ; +OMNICEF 300MG300 MG PO
== END ==
LOC: COL.RAD 10:46
DX: O20.0 Threatened abortion (principal); O23.40 Unspecified infection of urinary tract in pregnancy, unspecified trimester; N39.0 Urinary tract infection, site not specified; Z3A.00 Weeks of gestation of pregnancy not specified

== ENCOUNTER 2022-02-03 21:47 | Emergency (ER) | payer BC ==
[~2022-02-03] VITALS: Ht 167.6 cm; Wt 62.7 kg
[~2022-02-03 21:47] MED LIST changes: -FLAGYL500 MG PO; -NOVOLIN N100 UNIT/1 SQ; -OMNICEF 300MG300 MG PO
[2022-02-03 21:56] VITALS: TEMP 98.2
[2022-02-03 22:31] LABS: COLLECTION METHOD CLEAN CATCH
[2022-02-03] MEDS ORDERED: NOVOLIN N100 UNIT/1 SQ (22:32)
[2022-02-03 22:39] LABS: PH 6 (5-8); SQUAMOUS EPITHELIAL None Seen /hpf (0-10); URINE APPEARANCE Clear (CLEAR/HAZY); URINE BACTERIA Rare /hpf (NONE SEEN); URINE BILIRUBIN Negative (NEGATIVE); URINE BLOOD 1+ (NEGATIVE); URINE COLOR Yellow (YELLOW); URINE GLUCOSE 3+ (NEGATIVE); URINE KETONE Negative (NEGATIVE); URINE LEUKOCYTE ESTERASE Trace (NEGATIVE); URINE NITRATE Positive (NEGATIVE); URINE PROTEIN(semi-quant) Negative (NEGATIVE); URINE RBC 0-2 /hpf (0-2); URINE UROBILINOGEN Negative (NEGATIVE)
[2022-02-03 22:46] LABS: BASO % 0.3 % (0.0-2.0); EOS % 0.3 % (0.0-4.0); GRAN # 7.2 K/mm3 (1.4-6.5); GRAN % 62.6 % (42.2-75.2); LYMPH # 3.4 K/mm3 (1.2-3.4); LYMPH % 29.1 % (20.0-51.0); MEAN CELL VOLUME 91 fl (80.0-100.0); MEAN CORPUSCULAR HEMOGLOBIN 32 pg (27-31); MEAN CORPUSCULAR HGB CONC 35 g/dl (33.0-37.0); MEAN PLATELET VOLUME 10.7 fl (7.4-10.4); MONO # 0.9 K/mm3 (0.1-0.6); MONO % 7.4 % (1.7-9.3); PLATELET COUNT 278 K/mm3 (130-400); RED BLOOD COUNT 3.81 M/mm3 (4.10-5.30); REDCELL DISTRIBUTION WIDTH-CV 13.1 % (11.5-14.5)
[2022-02-03 22:47] LABS: HEMATOCRIT 34.7 % (37.0-47.0)
[2022-02-03] MEDS ORDERED: FLAGYL500 MG PO (22:48)
[2022-02-03] MEDS ORDERED: OMNICEF 300MG300 MG PO (22:59)
[2022-02-03 23:05] LABS: BILIRUBIN,TOTAL 0.3 mg/dL (0.2-1.2); CALCIUM 8.9 mg/dL (8.4-10.2); CREATININE, serum 0.74 mg/dL (0.57-1.11); POTASSIUM 3.7 mmol/L (3.5-4.5); TOTAL PROTEIN 6.9 gm/dL (6.2-8.1)
[2022-02-03 23:47] VITALS: BP 111/70; PULSE 110
== END 2022-02-03 23:53 | disposition home or self-care (01) ==
LOC: COL.ER 21:47
PROVIDERS: Nurse Practitioner Primary Care
DX: O23.591 Infection of other part of genital tract in pregnancy, first trimester (principal); B96.89 Other specified bacterial agents as the cause of diseases classified elsewhere; O23.41 Unspecified infection of urinary tract in pregnancy, first trimester; Z28.310 Unvaccinated for COVID-19; Z3A.12 12 weeks gestation of pregnancy
CPT/HCPCS: J7030

== ENCOUNTER 2022-02-21 20:14 | Emergency (ER) | payer BC ==
[~2022-02-21] VITALS: Ht 167.6 cm; Wt 56.8 kg
[~2022-02-21 20:14] MED LIST changes: +FLAGYL500 MG PO; +NOVOLIN N100 UNIT/1 SQ; +OMNICEF 300MG300 MG PO
[2022-02-21 21:22] LABS: BASO % 0.3 % (0.0-2.0); EOS % 0.1 % (0.0-4.0); GRAN # 7.2 K/mm3 (1.4-6.5); GRAN % 73.5 % (42.2-75.2); HEMOGLOBIN 12.8 g/dl (12.5-16.0); LYMPH # 1.7 K/mm3 (1.2-3.4); LYMPH % 17.5 % (20.0-51.0); MEAN CELL VOLUME 90 fl (80.0-100.0); MEAN CORPUSCULAR HEMOGLOBIN 31 pg (27-31); MEAN CORPUSCULAR HGB CONC 35 g/dl (33.0-37.0); MEAN PLATELET VOLUME 10.5 fl (7.4-10.4); MONO # 0.8 K/mm3 (0.1-0.6); MONO % 8.2 % (1.7-9.3); PLATELET COUNT 384 K/mm3 (130-400); RED BLOOD COUNT 4.11 M/mm3 (4.10-5.30); REDCELL DISTRIBUTION WIDTH-CV 12.6 % (11.5-14.5)
[2022-02-21 21:25] LABS: HEMATOCRIT 36.9 % (37.0-47.0)
[2022-02-21 21:28] LABS: COLLECTION METHOD CLEAN CATCH
[2022-02-21 21:35] LABS: ACETONE,SERUM NEGATIVE
[2022-02-21 21:38] LABS: MUCOUS Present (NOT PRESENT); PH 5 (5-8); SQUAMOUS EPITHELIAL 0-2 /hpf (0-10); URINE APPEARANCE Cloudy (CLEAR/HAZY); URINE BACTERIA Rare /hpf (NONE SEEN); URINE BILIRUBIN Negative (NEGATIVE); URINE BLOOD 2+ (NEGATIVE); URINE COLOR Yellow (YELLOW); URINE GLUCOSE 3+ (NEGATIVE); URINE KETONE 2+ (NEGATIVE); URINE LEUKOCYTE ESTERASE 3+ (NEGATIVE); URINE NITRATE Positive (NEGATIVE); URINE PROTEIN(semi-quant) 2+ (NEGATIVE)
[2022-02-21 21:41] LABS: ALANINE AMINOTRANSFERASE 10 U/L (0-55); ALBUMIN 2.9 gm/dL (3.5-5.0); ALKALINE PHOSPHATASE 151 U/L (40-150); ANION GAP 16 mmol/L (7-16); AST,SGOT 15 U/L (5-34); BILIRUBIN,TOTAL 0.4 mg/dL (0.2-1.2); BLOOD UREA NITROGEN 8 mg/dL (7-19); CALCIUM 9.2 mg/dL (8.4-10.2); CARBON DIOXIDE 19 mmol/L (22-29); CHLORIDE 98 mmol/L (98-107); CREATININE, serum 0.67 mg/dL (0.57-1.11); GLUCOSE 171 mg/dL (70-99); POTASSIUM 3.9 mmol/L (3.5-4.5); SODIUM 133 mmol/L (136-145); TOTAL PROTEIN 7.8 gm/dL (6.2-8.1)
[2022-02-21 22:10] VITALS: TEMP 99.5
[2022-02-21] MEDS ORDERED: VANTIN100 MG PO (23:03)
[2022-02-21 23:16] VITALS: BP 111/62; PULSE 104
[2022-02-21] MEDS ORDERED: ZOFRAN ODT4 MG PO (23:23)
== END 2022-02-21 23:30 | disposition home or self-care (01) ==
LOC: COL.ER 20:14
PROVIDERS: Physician Assistant
DX: O23.41 Unspecified infection of urinary tract in pregnancy, first trimester (principal); N39.0 Urinary tract infection, site not specified; Z3A.13 13 weeks gestation of pregnancy; Z28.310 Unvaccinated for COVID-19
CPT/HCPCS: J0696; J2405; J7030

== ENCOUNTER 2022-04-03 22:12 | Emergency (ER) | payer OTHER ==
[~2022-04-03] VITALS: Ht 167.6 cm; Wt 63.6 kg
[~2022-04-03 22:12] MED LIST changes: +PERCOCET 325 MG1 TA2 PO; +VANTIN100 MG PO
[2022-04-03 22:17] VITALS: TEMP 98.2
[2022-04-03 22:31] LABS: COLLECTION METHOD CLEAN CATCH
[2022-04-03 22:38] LABS: PH 6 (5-8); SQUAMOUS EPITHELIAL None Seen /hpf (0-10); URINE APPEARANCE Clear (CLEAR/HAZY); URINE BACTERIA None Seen /hpf (NONE SEEN); URINE BLOOD Negative (NEGATIVE); URINE COLOR Colorless (YELLOW); URINE GLUCOSE 3+ (NEGATIVE); URINE KETONE 2+ (NEGATIVE); URINE NITRATE Negative (NEGATIVE); URINE PROTEIN(semi-quant) Negative (NEGATIVE); URINE RBC 0-2 /hpf (0-2); URINE UROBILINOGEN Negative (NEGATIVE)
[2022-04-03 22:46] LABS: BASO % 0.3 % (0.0-2.0); EOS % 0.2 % (0.0-4.0); GRAN # 4.4 K/mm3 (1.4-6.5); GRAN % 67.7 % (42.2-75.2); HEMOGLOBIN 10.3 g/dl (12.5-16.0); LYMPH # 1.8 K/mm3 (1.2-3.4); MEAN CELL VOLUME 92 fl (80.0-100.0); MEAN CORPUSCULAR HEMOGLOBIN 31 pg (27-31); MEAN CORPUSCULAR HGB CONC 34 g/dl (33.0-37.0); MEAN PLATELET VOLUME 10.7 fl (7.4-10.4); MONO # 0.3 K/mm3 (0.1-0.6); MONO % 4.3 % (1.7-9.3); PLATELET COUNT 292 K/mm3 (130-400); REDCELL DISTRIBUTION WIDTH-CV 12.7 % (11.5-14.5)
[2022-04-03 22:53] LABS: HEMATOCRIT 30.5 % (37.0-47.0)
[2022-04-03 23:02] LABS: ALANINE AMINOTRANSFERASE 13 U/L (0-55); ALBUMIN 2.4 gm/dL (3.5-5.0); ALKALINE PHOSPHATASE 170 U/L (40-150); ANION GAP 22 mmol/L (7-16); AST,SGOT 8 U/L (5-34); BILIRUBIN,TOTAL 0.3 mg/dL (0.2-1.2); BLOOD UREA NITROGEN 13 mg/dL (7-19); CALCIUM 8.4 mg/dL (8.4-10.2); CHLORIDE 94 mmol/L (98-107); CREATININE, serum 1.08 mg/dL (0.57-1.11); POTASSIUM 3.5 mmol/L (3.5-4.5); SODIUM 128 mmol/L (136-145); TOTAL PROTEIN 6.4 gm/dL (6.2-8.1)
[2022-04-03 23:08] LABS: CARBON DIOXIDE 12 mmol/L (22-29); GLUCOSE 690 mg/dL (70-99)
[2022-04-03 23:27] LABS: ACETONE,SERUM SMALL
[2022-04-04 00:41] LABS: CREATININE, serum 0.72 mg/dL (0.57-1.11); POTASSIUM 3.4 mmol/L (3.5-4.5)
[2022-04-04] MEDS ORDERED: NOVOLOG FLEX100 U/ML SQ (00:54)
[2022-04-04 01:45] VITALS: BP 122/78; PULSE 102
== END 2022-04-04 02:00 | disposition short-term general hospital (02) ==
LOC: COL.ER 22:12
PROVIDERS: Emergency Medicine
DX: O24.414 Gestational diabetes mellitus in pregnancy, insulin controlled (principal); O26.892 Other specified pregnancy related conditions, second trimester; R10.30 Lower abdominal pain, unspecified; Z28.310 Unvaccinated for COVID-19; Z3A.19 19 weeks gestation of pregnancy; Y04.8XXA Assault by other bodily force, initial encounter
CPT/HCPCS: J1815; J2270; J3480; J7030

== ENCOUNTER 2022-04-15 16:50 | Inpatient (IN) | payer SELFPAY ==
[~2022-04-15] VITALS: Wt 71.8 kg
[2022-04-15 17:36] LABS: BASO % 0.3 % (0.0-2.0); EOS % 0.2 % (0.0-4.0); GRAN # 6.5 K/mm3 (1.4-6.5); GRAN % 66.9 % (42.2-75.2); HEMATOCRIT 36.3 % (37.0-47.0); HEMOGLOBIN 12.1 g/dl (12.5-16.0); LYMPH # 2.7 K/mm3 (1.2-3.4); LYMPH % 27.4 % (20.0-51.0); MEAN CELL VOLUME 93 fl (80.0-100.0); MEAN CORPUSCULAR HEMOGLOBIN 31 pg (27-31); MEAN CORPUSCULAR HGB CONC 33 g/dl (33.0-37.0); MEAN PLATELET VOLUME 9.8 fl (7.4-10.4); MONO # 0.5 K/mm3 (0.1-0.6); MONO % 4.8 % (1.7-9.3); PLATELET COUNT 296 K/mm3 (130-400); RED BLOOD COUNT 3.91 M/mm3 (4.10-5.30); REDCELL DISTRIBUTION WIDTH-CV 12.9 % (11.5-14.5)
[2022-04-15] MEDS ORDERED: NOVOLIN N100 UNIT/1 SQ (17:51)
[2022-04-15 17:59] LABS: ALBUMIN 2.6 gm/dL (3.5-5.0); BILIRUBIN,TOTAL 0.3 mg/dL (0.2-1.2); CALCIUM 8.8 mg/dL (8.4-10.2); CREATININE, serum 0.65 mg/dL (0.57-1.11); MAGNESIUM 1.6 mg/dL (1.6-2.6); POTASSIUM 3.1 mmol/L (3.5-4.5); TOTAL PROTEIN 6.7 gm/dL (6.2-8.1)
[2022-04-15 18:32] LABS: COLLECTION METHOD CLEAN CATCH
[2022-04-15 18:47] LABS: MUCOUS Present (NOT PRESENT); PH 7 (5-8); URINE APPEARANCE Hazy (CLEAR/HAZY); URINE BACTERIA Moderate /hpf (NONE SEEN); URINE BLOOD Negative (NEGATIVE); URINE COLOR Yellow (YELLOW); URINE GLUCOSE 3+ (NEGATIVE); URINE KETONE 2+ (NEGATIVE); URINE NITRATE Negative (NEGATIVE); URINE PROTEIN(semi-quant) 2+ (NEGATIVE); URINE UROBILINOGEN Negative (NEGATIVE)
--- NOTE | 2022-04-15 22:45 | NUR ---
Pt wheeled up to 222. Pt oriented but difficult to hold conversation with due to pts "pain level" according to pt. Pt reports severe headache. Denies seeing spots blurred or doubled vision. Pt reports pain to her abodmen above her belly button and back that is sharp. Pt states "I just have pain everywhere." Pt hitting head due to head hurting. P requesting something for pain. Assessment and VS completed. Plan of care explained to pt who verblaizes her understanding. Call light within reach.
[2022-04-15 23:00] VITALS: BP 128/82; PULSE 97; TEMP 98.1
[2022-04-16 04:00] VITALS: BP 134/88; PULSE 99; TEMP 98
[2022-04-16 07:30] VITALS: BP 127/74; PULSE 105; TEMP 97.7
[2022-04-16 07:54] LABS: BASO % 0.3 % (0.0-2.0); EOS % 0.3 % (0.0-4.0); GRAN # 5.9 K/mm3 (1.4-6.5); GRAN % 62.6 % (42.2-75.2); HEMOGLOBIN 10.8 g/dl (12.5-16.0); LYMPH # 2.9 K/mm3 (1.2-3.4); LYMPH % 30.7 % (20.0-51.0); MEAN CELL VOLUME 96 fl (80.0-100.0); MEAN CORPUSCULAR HEMOGLOBIN 31 pg (27-31); MEAN CORPUSCULAR HGB CONC 33 g/dl (33.0-37.0); MEAN PLATELET VOLUME 10.2 fl (7.4-10.4); MONO # 0.5 K/mm3 (0.1-0.6); MONO % 5.5 % (1.7-9.3); PLATELET COUNT 249 K/mm3 (130-400); RED BLOOD COUNT 3.47 M/mm3 (4.10-5.30)
[2022-04-16 07:56] LABS: HEMATOCRIT 33.2 % (37.0-47.0)
[2022-04-16 08:07] LABS: ALBUMIN 2.4 gm/dL (3.5-5.0); BILIRUBIN,TOTAL 0.3 mg/dL (0.2-1.2); CALCIUM 7.9 mg/dL (8.4-10.2); CREATININE, serum 0.54 mg/dL (0.57-1.11); MAGNESIUM 1.7 mg/dL (1.6-2.6); POTASSIUM 4.4 mmol/L (3.5-4.5); TOTAL PROTEIN 5.9 gm/dL (6.2-8.1)
--- NOTE | 2022-04-16 09:55 | NUR ---
Patient is checks own blood sugar at this time- 155.
[2022-04-16 12:00] VITALS: BP 130/85; PULSE 106; TEMP 98.5
--- NOTE | 2022-04-16 13:20 | NUR ---
1100-Dr. Castro to patient room. Patient just had an episode of watery stools. Also reported " I felt like I was peeing but I wasn't." completes pelvic exam, JHONNY. Orders diflucan for suspected yeast infection. also orders immodium, see EMAR.
--- NOTE | 2022-04-16 14:30 | NUR ---
1430-Doppler FHR 165-170bpm.
[2022-04-16 16:00] VITALS: BP 130/82; PULSE 112; TEMP 99.1
[2022-04-16 20:30] VITALS: BP 118/71; PULSE 99; TEMP 98.4
[2022-04-17] VITALS: BP 111/59; PULSE 97; TEMP 98.6
--- NOTE | 2022-04-17 01:55 | NUR ---
Pt called out stating her blood sugar was low according to her personal glucometer. Personal glucometer noted BS at 52. Hospital's BS 35. Pt requesting snack. Ice cream and peanut butter given. Pt denies having any symptoms and states she "actually feels better." 0300: BS retaken and 119.
[2022-04-17 05:00] VITALS: BP 111/59; PULSE 95; TEMP 98
[2022-04-17 06:56] VITALS: BP 129/78; PULSE 96; TEMP 98.7
--- NOTE | 2022-04-17 09:45 | NUR ---
0945-Dr. Castro on unit. Gives order to have patient ambulate and if not ambulating throughout the day place SCDs on patient. Patient states she will ambulate today.
[2022-04-17 10:11] LABS: HEMOGLOBIN 10.8 g/dl (12.5-16.0); MEAN CELL VOLUME 97 fl (80.0-100.0); MEAN CORPUSCULAR HEMOGLOBIN 31 pg (27-31); MEAN CORPUSCULAR HGB CONC 32 g/dl (33.0-37.0); MEAN PLATELET VOLUME 10.6 fl (7.4-10.4); PLATELET COUNT 252 K/mm3 (130-400); RED BLOOD COUNT 3.45 M/mm3 (4.10-5.30)
[2022-04-17 10:12] LABS: HEMATOCRIT 33.3 % (37.0-47.0)
[2022-04-17 10:35] LABS: CALCIUM 8.4 mg/dL (8.4-10.2); CREATININE, serum 0.55 mg/dL (0.57-1.11); POTASSIUM 4.2 mmol/L (3.5-4.5)
--- NOTE | 2022-04-17 11:30 | NUR ---
1130-Patient showers independantly. Returns to room sitting up in chair. Denies needs.
[2022-04-17 12:22] VITALS: BP 116/72; PULSE 108; TEMP 98.7
--- NOTE | 2022-04-17 12:31 | NUR ---
Initial visit attempt; Patient resting, Fire Sprinkler Fitter left card offering God's blessings and information regarding the availability of spiritual care at our hospital.
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
[2022-04-17 16:34] VITALS: BP 136/81; PULSE 107; TEMP 98.7
[2022-04-17 21:10] VITALS: BP 136/83; PULSE 106; TEMP 98.5
[2022-04-18 07:30] VITALS: BP 123/89; PULSE 95; TEMP 97.9
--- NOTE | 2022-04-18 08:15 | NUR ---
PT VERY DROWSY AND WITHDRAWN DURING THIS ENCOUNTER. EASILY AROUSABLE, BUT NOT ENGAGING IN CONVERSATION OUTSIDE OF ANSWERING YES OR NO QUESTIONS. DENIES ANY URINARY RELATED PAINS, BUT REPORTS CONSTANT HEADACHE. REQUESTING PERCOCET AT THIS TIME. BLOOD GLUCOSE 162. THIS NURSE EDUCATES PT THAT SHE WILL BRING PERCOCET AND INSULIN BACK WHEN MEAL TRAY ARRIVES, PT REPORTS NAUSEA WITH PERCOCET ON AN EMPTY STOMACH. AFEBRILE, VITAL SIGNS STABLE. PT AMBULATORY WITH STEADY GAIT TO RESTROOM AT THIS TIME, VOIDS CLEAR YELLOW URINE. DENIES PAIN WITH URINATION.
--- NOTE | 2022-04-18 08:53 | NUR ---
PT REMAINS WITHDRAWN AND DROWSY UPON THIS ENCOUNTER. CONTINUES TO REQUEST PERCOCET FOR HEADACHE. THIS NURSE EDUCATES PT THAT I WOULD LIKE HER TO SIT UP AND ATTEMPT BREAKFAST FIRST AND PROVE SHE CAN STAY AWAKE LONG ENOUGH TO EAT. PT AGREEABLE AND SITS ON EDGE OF BED. BEGINS TO WAKE UP. INSULIN AND PERCOCET ADMINISTERED PER ORDER. PT EATING MEAL TRAY UPON THIS NURSE EXITING ROOM.
--- NOTE | 2022-04-18 12:33 | NUR ---
PT ASLEEP, EASILY AROUSABLE. AGAIN, WITHDRAWN AND UNWILLING TO ENGAGE IN CONVERSATION. THIS NURSE ASKS "IS EVERYTHING ELSE ALRIGHT? ANYTHING I CAN HELP YOU WITH? YOU SEEM A BIT WITHDRAWN TODAY." PT STATES "NO, IM JUST TIRED. I HAVENT BEEN SLEEPING GREAT HERE." THIS NURSE ENCOURAGES PT TO REACH OUT AT ANY TIME IF THERE IS ANYTHING EMOTIONALLY OR PHYSICALLY SHE NEEDS, PT AGREEABLE. B. PT IN STABLE CONDITION. DENIES PAIN. CALL LIGHT WITHIN REACH UPON EXITING ROOM. PT SITTING UP ORDERING HER LUNCH TRAY AT THIS TIME.
[2022-04-18 12:35] VITALS: BP 124/78; PULSE 88; TEMP 98.2
--- NOTE | 2022-04-18 15:00 | NUR ---
HOSPTALIST AT BEDSIDE DISCUSSING POC. PLANS TO DC PT TODAY SHORTLY. PT DENIES FURTHER QUESTIONS OR CONCERNS REGARDING MEDICATION DOSAGES OR POST DC ORDERS AND APPOINTMENTS.
[2022-04-18] MEDS ORDERED: SEPTRA DS 8001 TAB PO (15:16)
[2022-04-18] MEDS ORDERED: NOVOLIN N100 UNIT/1 SQ (15:25)
--- NOTE | 2022-04-18 16:01 | NUR ---
ALL DC PAPERWORK REVIEWED AND UNDERSTOOD. ALL DC APPOINTMENTS AND MEDS REVIEWED IN DEPTH. PT DENIES FURTHER QUESTIONS OR CONCERNS. BG 128 ON HOME DEVICE AT THIS TIME. PT DENIES PAIN, HEADACHE, NAUSEA OR FLANK PAIN. TALKATIVE AND EAGER TO GET HOME.
== END 2022-04-18 16:15 | disposition home or self-care (01) | DRG 832 ==
LOC: COL.ER 16:50 → OB 22:24
PROVIDERS: Nurse Practitioner; Student in an Organized Health Care Education/Training Program; ADMIT Obstetrics & Gynecology
DX: O24.012 Pre-existing type 1 diabetes mellitus, in pregnancy, second trimester (principal); O16.2 Unspecified maternal hypertension, second trimester; O23.02 Infections of kidney in pregnancy, second trimester; O23.42 Unspecified infection of urinary tract in pregnancy, second trimester; N39.0 Urinary tract infection, site not specified; O98.812 Other maternal infectious and parasitic diseases complicating pregnancy, second trimester; Z16.29 Resistance to other single specified antibiotic; J32.9 Chronic sinusitis, unspecified; O99.891 Other specified diseases and conditions complicating pregnancy; R00.0 Tachycardia, unspecified; E87.6 Hypokalemia; O99.282 Endocrine, nutritional and metabolic diseases complicating pregnancy, second trimester; E10.649 Type 1 diabetes mellitus with hypoglycemia without coma; O99.352 Diseases of the nervous system complicating pregnancy, second trimester; G40.909 Epilepsy, unspecified, not intractable, without status epilepticus; E10.21 Type 1 diabetes mellitus with diabetic nephropathy; B37.9 Candidiasis, unspecified; H66.90 Otitis media, unspecified, unspecified ear; E10.65 Type 1 diabetes mellitus with hyperglycemia; B96.20 Unspecified Escherichia coli [E. coli] as the cause of diseases classified elsewhere; B96.1 Klebsiella pneumoniae [K. pneumoniae] as the cause of diseases classified elsewhere; O99.012 Anemia complicating pregnancy, second trimester; D64.9 Anemia, unspecified; Z20.822 Contact with and (suspected) exposure to COVID-19; Z88.1 Allergy status to other antibiotic agents; Z88.0 Allergy status to penicillin; Z3A.20 20 weeks gestation of pregnancy; Z79.4 Long term (current) use of insulin; Z87.01 Personal history of pneumonia (recurrent); Z85.6 Personal history of leukemia; Z91.14 Patient's other noncompliance with medication regimen; Z88.8 Allergy status to other drugs, medicaments and biological substances; Z23 Encounter for immunization
CPT/HCPCS: OP; 99239; J0696; J1580; J1815; J2270; J2405; J2550; J3010; J3480; J7030

== ENCOUNTER 2022-05-30 02:15 | Outpatient (CLI) | payer SELFPAY ==
[~2022-05-30] VITALS: Ht 167.6 cm; Wt 67.7 kg
[2022-05-30] VITALS (7 sets, daily range): BP systolic 108–133; BP diastolic 65–87; PULSE 92–104; TEMP 97.8–98
[~2022-05-30 02:15] MED LIST changes: +SEPTRA DS 8001 TAB PO
--- NOTE | 2022-05-30 02:35 | NUR ---
To unit via wheelchair for assessment. Pt doubled over, holding lower abd. Walks into bathroom, holding L lower back. UA obtained. Back to bed. Pt reports lower abd pain "started @ 5;00 last night but just kept getting worse"
[2022-05-30 02:41] LABS: COLLECTION METHOD CLEAN CATCH
[2022-05-30 02:55] LABS: URINE APPEARANCE Clear (CLEAR/HAZY); URINE BLOOD TRACE-LYSED (NEGATIVE); URINE COLOR Yellow (YELLOW); URINE GLUCOSE 3+ (NEGATIVE); URINE KETONE 2+ (NEGATIVE); URINE NITRATE Negative (NEGATIVE); URINE PROTEIN(semi-quant) Negative (NEGATIVE)
[2022-05-30 03:07] LABS: SQUAMOUS EPITHELIAL 0-2 /hpf (0-10); URINE BACTERIA None Seen /hpf (NONE SEEN); URINE WBC >50 /hpf (0-2)
[2022-05-30 03:08] LABS: TRICYCLIC ANTIDEPRESS URINE NEGATIVE
--- NOTE | 2022-05-30 03:10 | NUR ---
NOVOLIN R 4u SQ.
[2022-05-30 03:33] LABS: HEMOGLOBIN 11.4 g/dl (12.5-16.0); MEAN CELL VOLUME 89 fl (80.0-100.0); MEAN CORPUSCULAR HEMOGLOBIN 32 pg (27-31); MEAN CORPUSCULAR HGB CONC 36 g/dl (33.0-37.0); MEAN PLATELET VOLUME 11.3 fl (7.4-10.4); PLATELET COUNT 224 K/mm3 (130-400); RED BLOOD COUNT 3.58 M/mm3 (4.10-5.30); REDCELL DISTRIBUTION WIDTH-CV 13.1 % (11.5-14.5)
[2022-05-30 03:53] LABS: HEMATOCRIT 31.9 % (37.0-47.0)
[2022-05-30 03:58] LABS: ALBUMIN 2.5 gm/dL (3.5-5.0); BILIRUBIN,TOTAL 0.4 mg/dL (0.2-1.2); CALCIUM 9.2 mg/dL (8.4-10.2); CREATININE, serum 0.67 mg/dL (0.57-1.11); POTASSIUM 3.9 mmol/L (3.5-4.5); TOTAL PROTEIN 6.7 gm/dL (6.2-8.1)
[2022-05-30 04:53] LABS: BAND 6 % (0-10); LYMPHOCYTE 30 % (20.0-51.0); NEUTROPHILS 60 % (42.0-75.2); PLATELET ESTIMATE NORMAL (NORMAL)
--- NOTE | 2022-05-30 05:10 | NUR ---
Awakened for insulin. IV to INT.
[2022-05-30] MEDS ORDERED: TYLENOL 500MG500 MG PO (05:11)
--- NOTE | 2022-05-30 06:25 | NUR ---
NURSE TO NURSE REPORT FROM INDIRA SUH AT THIS TIME. THIS NURSE TO ASSUME CARE.
--- NOTE | 2022-05-30 06:55 | NUR ---
ALL DC PAPERWORK REVIEWED AND UNDERSTOOD. B. PT EDUCATED IN LENGTH ON DIABETES MANAGEMENT AND IMPORTANCE DURING . PT AGREEABLE TO DC PAPERWORK. DENIES FURTHER QUESTIONS OR CONCERNS.
== END 2022-05-30 06:55 | disposition home or self-care (01) ==
LOC: LDRO 02:15
PROVIDERS: Obstetrics & Gynecology
DX: O26.892 Other specified pregnancy related conditions, second trimester (principal); R10.9 Unspecified abdominal pain; Z3A.26 26 weeks gestation of pregnancy
CPT/HCPCS: J1815

== ENCOUNTER 2022-06-02 13:51 | Emergency (ER) | payer SELFPAY ==
[~2022-06-02] VITALS: Ht 167.6 cm; Wt 59.1 kg
[~2022-06-02 13:51] MED LIST changes: +TYLENOL 500MG500 MG PO
[2022-06-02 14:00] VITALS: TEMP 98.5
[2022-06-02 14:53] LABS: BASO % 0.4 % (0.0-2.0); GRAN # 7.2 K/mm3 (1.4-6.5); GRAN % 72.9 % (42.2-75.2); HEMATOCRIT 31.4 % (37.0-47.0); HEMOGLOBIN 10.8 g/dl (12.5-16.0); LYMPH # 1.8 K/mm3 (1.2-3.4); LYMPH % 18.5 % (20.0-51.0); MEAN CELL VOLUME 92 fl (80.0-100.0); MEAN CORPUSCULAR HEMOGLOBIN 32 pg (27-31); MEAN CORPUSCULAR HGB CONC 34 g/dl (33.0-37.0); MEAN PLATELET VOLUME 10.8 fl (7.4-10.4); MONO # 0.8 K/mm3 (0.1-0.6); MONO % 7.7 % (1.7-9.3); PLATELET COUNT 303 K/mm3 (130-400); RED BLOOD COUNT 3.43 M/mm3 (4.10-5.30); REDCELL DISTRIBUTION WIDTH-CV 13.2 % (11.5-14.5)
[2022-06-02 15:13] LABS: ALBUMIN 2.3 gm/dL (3.5-5.0); ALKALINE PHOSPHATASE 128 U/L (40-150); ANION GAP 14 mmol/L (7-16); AST,SGOT 8 U/L (5-34); BILIRUBIN,TOTAL 0.4 mg/dL (0.2-1.2); BLOOD UREA NITROGEN 8 mg/dL (7-19); CALCIUM 8.7 mg/dL (8.4-10.2); CARBON DIOXIDE 15 mmol/L (22-29); CHLORIDE 101 mmol/L (98-107); CREATININE, serum 0.76 mg/dL (0.57-1.11); GLUCOSE 325 mg/dL (70-99); LIPASE 4 U/L (8-78); POTASSIUM 4.5 mmol/L (3.5-4.5); SODIUM 130 mmol/L (136-145); TOTAL PROTEIN 6.5 gm/dL (6.2-8.1)
[2022-06-02 15:14] LABS: ALANINE AMINOTRANSFERASE < 6 U/L (0-55)
--- NOTE | 2022-06-02 15:55 | NUR ---
Pt seen in the ED by this RN. Pt reports she is 27.[address] Stroud and Dr. Yates in [place]. Pt also reports she is G6L0. Pt denies any contractions, leaking of fluid or vaginal bleeding and reports normal movement. EFM and toco monitor started. See monitoring flowsheet for details.
[2022-06-02 17:02] LABS: COLLECTION METHOD CLEAN CATCH
[2022-06-02 17:07] LABS: PH 5.5 (5.0-8.5); URINE APPEARANCE Clear (CLEAR/HAZY); URINE COLOR Yellow (YELLOW); URINE GLUCOSE 2+ (NEGATIVE); URINE PROTEIN(semi-quant) Negative (NEGATIVE)
[2022-06-02 17:08] LABS: URINE BLOOD TRACE-INTACT (NEGATIVE); URINE KETONE 4+ (NEGATIVE); URINE NITRATE Negative (NEGATIVE); URINE UROBILINOGEN 0.2 E.U/dL (0.2-1.0)
[2022-06-02 17:10] LABS: SQUAMOUS EPITHELIAL 0-2 /hpf (0-10); URINE BACTERIA None Seen /hpf (NONE SEEN)
[2022-06-02] MEDS ORDERED: MACROBID 1100 MG/CAP PO (18:00)
[2022-06-02 18:22] VITALS: BP 148/96; PULSE 111
== END 2022-06-02 18:15 | disposition home or self-care (01) ==
LOC: COL.ER 13:51
PROVIDERS: Family Medicine
DX: O21.9 Vomiting of pregnancy, unspecified (principal); O24.912 Unspecified diabetes mellitus in pregnancy, second trimester; Z88.6 Allergy status to analgesic agent; Z28.310 Unvaccinated for COVID-19; Z3A.27 27 weeks gestation of pregnancy
CPT/HCPCS: J2270; J2405; J7030; J7120

== ENCOUNTER 2022-06-08 20:33 | Inpatient (IN) | payer SELFPAY ==
[~2022-06-08] VITALS: Ht 167.6 cm; Wt 67.7 kg
--- NOTE | 2022-06-08 01:00 | NUR ---
CONTRACTIONS 2-6 MIN APART, PALPATES SOFT, 0127 DR BEARD AT BEDSIDE.
[2022-06-08 21:11] VITALS: BP 135/89; PULSE 112; TEMP 98.2
--- NOTE | 2022-06-08 21:25 | NUR ---
[address] OLD PT OF DR MELTON, , 28.1, PRESENTS WITH ELEVATED SUGARS, PASSING OUT, EMESIS, BACKPAIN CONSTANT-"BARELY ABLE TO STAND UP/WALK" DUE TO THE PAIN, BURING IN HIPS/GROIN, ABD PAIN INTERMITTENT, LT CHEST PAIN-INTERMITTENT WORSENS WITH BREATHING, DECREASED MOVEMENT. REPORTS NEXT VISIT WI MATERNAL MEDICINE IS 06/09/22 AT 1100, DENIES TELLING PRIMARY PROVIDER COMPLAINTS/CONCERNS. STATES "I AM IN THE PROCESS OF TRANSFERING TO [facility]". REPORTS TAKING OVER 200 UNITS OF INSULIN TODAY. PMH TYPE 1 DM, ANXIETY, DEPRESSION, SEIZURES, LEUKEMIA.
[2022-06-08 23:30] VITALS: BP 128/81; PULSE 116; TEMP 98
--- NOTE | 2022-06-08 23:30 | NUR ---
9886 UP TO RESTROOM
[2022-06-09] VITALS (13 sets, daily range): BP systolic 118–155; BP diastolic 69–100; PULSE 102–116; TEMP 98.3–98.8
[2022-06-09 00:10] LABS: COLLECTION METHOD CLEAN CATCH
[2022-06-09 00:18] LABS: SQUAMOUS EPITHELIAL 0-2 /hpf (0-10); URINE APPEARANCE Hazy (CLEAR/HAZY); URINE BACTERIA None Seen /hpf (NONE SEEN); URINE COLOR Yellow (YELLOW); URINE RBC 0-2 /hpf (0-2); URINE WBC 20-50 /hpf (0-2)
[2022-06-09 00:19] LABS: PH 5.5 (5.0-8.5); URINE BLOOD 1+ (NEGATIVE); URINE GLUCOSE 2+ (NEGATIVE); URINE KETONE 4+ (NEGATIVE); URINE NITRATE Negative (NEGATIVE); URINE PROTEIN(semi-quant) Negative (NEGATIVE); URINE UROBILINOGEN 0.2 E.U/dL (0.2-1.0)
--- NOTE | 2022-06-09 01:30 | NUR ---
FHT SKETCHY, ULTRASOUND ADJUSTED. CONTRACTION X2, PALPATES SOFT.
--- NOTE | 2022-06-09 03:30 | NUR ---
0359 ASSIST TO RT TILT, DRY HEAVING. CONTRACTION PATTERN SKETCHY DUE TO FREQUENT MATERNAL POSITION CHANGES,
--- NOTE | 2022-06-09 04:00 | NUR ---
0409 FHT SKETCHY DUE TO MOVEMENT, ASSIST TO LT TILT,
--- NOTE | 2022-06-09 04:54 | NUR ---
1946 SITTING UP IN BED,
--- NOTE | 2022-06-09 05:06 | NUR ---
2229 PROLONG VARIABLE, ASSIST TO LT TILT. 2245 20GA LT AC, BLD RETURN NOTED, INFUSING. 2247 REPORTS "PRESSURE PAIN" NO REDNESS OR SWELLING NOTED, PT REQUEST TO DC IV SITE. TIP INTACT.
--- NOTE | 2022-06-09 05:14 | NUR ---
2301 2ND IV SITE, 1 ATTEMPT, BLD RETURN, INFUSING WELL. NS BOLUS CONTINUED. 2317 ASSIST TO RT AND LT LATERAL 2318 BOLUS COMPLETED
--- NOTE | 2022-06-09 06:00 | NUR ---
RESTING, SEMI FOWLERS.
--- NOTE | 2022-06-09 06:54 | NUR ---
0007 RETURNS FROM RESTROOM, TOCO AND EFM ADJUSTED. ASSIST TO LT LATERAL. 0027 ASSIST TO RT LATERAL, TOCO AND EFM ADJUSTED.
--- NOTE | 2022-06-09 06:58 | NUR ---
0031 EMESIS 75ML OUTPUT, SITTING UPRIGHT IN BED. 0045 ASSIST TO RT LATERAL, TOCO AND EFM ADJUSTED. 0052 RT TILT, REPORTS "LEAKING" NO FLUID VISUALIZED, AMNI TRACE COLLECTED 0059, NEGATIVE.
--- NOTE | 2022-06-09 07:00 | NUR ---
NOTIFIED AND UPDATED ON PT STATUS. SEE PHYSICIAN NOTIFICATION FOR DETAILS.
--- NOTE | 2022-06-09 07:09 | NUR ---
FHT SKETCHY DUE TO MOVEMENT, ULTRASOUND ADJSUTED.
--- NOTE | 2022-06-09 07:15 | NUR ---
0312 ASSIST TO LT LATERAL 0317 EMESIS 75ML OUTPUT FHT SKETCHY DUE TO MATERNAL MOVEMENT, FREQUENT POSITION CHANGES, TOCO AND EFM ADJUSTED.
--- NOTE | 2022-06-09 07:27 | NUR ---
FHT SKETCHY DUE TO MOVEMENT, ULTRASOUND ADJUSTED. POSITIONS SELF INDEPENDENTLY, RT TILT.
--- NOTE | 2022-06-09 07:29 | NUR ---
FHT SKETCHY DUE TO MOVEMENT, ULTRASOUND ADJUSTED. 0524 CONTINUOUS FLUID INFUSION AT 125ML/HR NORMAL SALINE. 0525 EMESIS 150ML OUTPUT
--- NOTE | 2022-06-09 07:33 | NUR ---
RESTING BETWEEN BOUTS OF EMESIS, FHT SKETCHY ULTRASOUND ADJUSTED.
[2022-06-09 08:08] LABS: BASO % 0.2 % (0.0-2.0); EOS % 0.1 % (0.0-4.0); GRAN # 8.2 K/mm3 (1.4-6.5); GRAN % 79.1 % (42.2-75.2); HEMOGLOBIN 11.3 g/dl (12.5-16.0); LYMPH # 1.4 K/mm3 (1.2-3.4); LYMPH % 13.9 % (20.0-51.0); MEAN CELL VOLUME 91 fl (80.0-100.0); MEAN CORPUSCULAR HEMOGLOBIN 31 pg (27-31); MEAN CORPUSCULAR HGB CONC 34 g/dl (33.0-37.0); MEAN PLATELET VOLUME 10.1 fl (7.4-10.4); MONO # 0.6 K/mm3 (0.1-0.6); PLATELET COUNT 437 K/mm3 (130-400); RED BLOOD COUNT 3.64 M/mm3 (4.10-5.30)
--- NOTE | 2022-06-09 08:15 | NUR ---
ON UNIT REVIEWING PT LAB RESULTS AND CURRENT HEALTH STATUS. IN CONTACT WITH [facility] REGARDING POTENTIAL TRANSFER OF CARE. REVIEWING EFM/TOCO. LR BOLUS INFUSING PER MARIAA TRACY AT THIS TIME.
[2022-06-09 08:23] LABS: ALBUMIN 2.3 gm/dL (3.5-5.0); BILIRUBIN,TOTAL 0.3 mg/dL (0.2-1.2); CALCIUM 9.1 mg/dL (8.4-10.2); CREATININE, serum 0.85 mg/dL (0.57-1.11); POTASSIUM 4.1 mmol/L (3.5-4.5)
--- NOTE | 2022-06-09 08:30 | NUR ---
DIFFICULTY TRACING EFM DUE TO MATERNAL VOMITING AND MATERNAL POSITION. THIS RN AT BEDSIDE ATTEMPTING TO TRACE EFM/TOCO THROUGHOUT EPISODE.
--- NOTE | 2022-06-09 08:40 | NUR ---
0840: 90 SECOND DECELERATION, FHR INTO THE 60'S. DECELS NOTED WHILE PT IS LYING FLAT ON BACK AND WRETCHING WITH VOMITING EPISODE. CORRECTED WITH POSITION CHANGE. PT EDUCATED ON IMPORTANCE OF NOT LYING FLAT ON HER BACK MULTIPLE TIMES. 0850: DECELERATION X2, FHR INTO THE 60S-90S. REMAINS ON UNIT THROUGHOUT MORNING MANAGING CARE. SEE ORDERS.
[2022-06-09 09:17] LABS: ARTERIAL BLD GAS O2 SATURATION 97.4 % (92-100); ARTERIAL BLD GAS TCO2 CT 18.2; ARTERIAL BLOOD GAS BASE EXCESS -6.8 (-2-2); ARTERIAL BLOOD GAS HCO3 17.3 meq/L (22-26); ARTERIAL BLOOD GAS PO2 96.4 mmHg (80-100); ARTERIAL BLOOD GAS pH 7.36 (7.35-7.45)
[2022-06-09 09:29] LABS: MAGNESIUM 1.9 mg/dL (1.6-2.6)
--- NOTE | 2022-06-09 09:30 | NUR ---
This RN to take over pts blood sugars and insulin drip. Spoke with regarding insulin drip, bolus, and ivf. BMPs ordered Q2 Hr. Miriam RN will remain primary RN for patient.
--- NOTE | 2022-06-09 09:30 | NUR ---
ON UNIT PER CONSULT. SEE PHYSICIAN ORDERS. INDIRA MOSHER FROM ICU ON UNIT TO MANAGE INSULIN GTT. THIS RN AND NOMI AT BEDSIDE DISCUSSING POC.
--- NOTE | 2022-06-09 09:41 | NUR ---
PT ADMITTED TO INPATIENT STATUS FROM OBSERVATION STATUS PER AT THIS TIME.
[2022-06-09 10:27] LABS: CALCIUM 8.7 mg/dL (8.4-10.2); CREATININE, serum 0.87 mg/dL (0.57-1.11); POTASSIUM 3.3 mmol/L (3.5-4.5)
--- NOTE | 2022-06-09 10:31 | NUR ---
CRITICAL CO2:13 AND GLUCOSE:400 CALLED BY LAB, NOTIFIED BY THIS RN
--- NOTE | 2022-06-09 10:40 | NUR ---
Spoke with regarding new BMP results. Will change IVF to D51/2NS with 20 KCL. Will also add K replacement. 1045 notified pt unable to take anything Po due to nausea and vommitting.
--- NOTE | 2022-06-09 11:03 | NUR ---
GENIE NOTIFIED AND IN TRANSIT AT THIS TIME TO GET PT AND TRANSPORT HER TO [facility]
--- NOTE | 2022-06-09 11:40 | NUR ---
L[facility] ON UNIT. FULL REPORT PROVIDED BY THIS RN, AND INDIRA MOSHER FROM ICU MANAGING INSULIN DRIP. ALL APPROPRIATE PAPERWORK PROVIDED. [facility] DENIES FURTHER QUESTIONS. PENDING TRANSPORT TO [facility], WAITING ON ROOM NUMBER.
--- NOTE | 2022-06-09 11:45 | NUR ---
REPORT GIVEN TO [facility]. PT TO TRANSFER TO [facility]. PRIMARY RN STILL BEDSIDE WITH [facility].
--- NOTE | 2022-06-09 12:22 | NUR ---
CALL TO [facility] FOR AN UPDATE ON PENDING ROOM NUMBER AT THIS TIME PER [facility] APPLICATIONS TESTER. LIFESTAR IN ROOM WITH PATIENT. INTERMITTENT VARIABLES. MATERNAL VITAL SIGNS STABLE. NO CONTRACTIONS ON TOCO. PT ACCEPTED TO ROOM #3387 ON [facility] AT [facility].
--- NOTE | 2022-06-09 12:40 | NUR ---
NURSE TO NURSE REPORT PROVIDED TO INDIRA WINTER AT THIS TIME AT [facility]. PT DISCHARGED FROM UNIT VIA LIFESTAR AT THIS TIME IN STABLE CONDITION.
[2022-06-09 12:58] LABS: CALCIUM 8.4 mg/dL (8.4-10.2); CREATININE, serum 0.82 mg/dL (0.57-1.11); POTASSIUM 4.3 mmol/L (3.5-4.5)
== END 2022-06-09 12:40 | disposition short-term general hospital (02) | DRG 832 ==
LOC: LDRO 20:33 → COL.ER 20:33 → LDR 20:33 → EDSTATUS 21:04 → LDR 22:25 → LDRO 06-09 09:40 → LDR 06-09 09:41
PROVIDERS: Internal Medicine; Obstetrics & Gynecology; ADMIT Student in an Organized Health Care Education/Training Program
DX: O23.43 Unspecified infection of urinary tract in pregnancy, third trimester (principal); O24.013 Pre-existing type 1 diabetes mellitus, in pregnancy, third trimester; N39.0 Urinary tract infection, site not specified; O16.3 Unspecified maternal hypertension, third trimester; E10.65 Type 1 diabetes mellitus with hyperglycemia; O99.343 Other mental disorders complicating pregnancy, third trimester; F39 Unspecified mood [affective] disorder; Z3A.28 28 weeks gestation of pregnancy
CPT/HCPCS: OP; C9113; J0360; J0696; J0702; J1815; J2405; J3480; J7030; J7040

== ENCOUNTER 2023-08-11 13:45 | Emergency (ER) | payer MEDICAID ==
[~2023-08-11] VITALS: Ht 167.6 cm; Wt 62.7 kg
[~2023-08-11 13:45] MED LIST changes: +ACIDOPHILIS PO; +ATARAX50 MG PO; +FERROUSAL325 MG PO; +ILOTYCIN5 MG/GM OP; +KLONOPIN 1MG1 MG PO; +LANTUS SOLOS100 U/ML SQ; +LIPITOR20 MG PO; +NORVASC 5MG5 MG/TAB PO; +PEPCID 20MG TAB20 MG PO; +PERCOCET 325 MG1 TA3 PO; +SALONPAS1 EACH TP; +VANTIN 200200 MG/TAB PO; +ZITHROMAX Z PA250 MG PO
[2023-08-11 14:00] VITALS: BP 131/89; PULSE 101; TEMP 98.1
[2023-08-11] MEDS ORDERED: OCUFLOX OPHTH DR5 ML OS (15:15)
[2023-08-11] MEDS ORDERED: CEPHALEXIN500 M1 PO (15:15)
== END 2023-08-11 15:28 | disposition home or self-care (01) ==
LOC: COL.ER 13:45
DX: O99.891 Other specified diseases and conditions complicating pregnancy (principal); H00.014 Hordeolum externum left upper eyelid; Z3A.01 Less than 8 weeks gestation of pregnancy; Z88.0 Allergy status to penicillin

== ENCOUNTER → 2023-09-08 | Day surgery (SDC) | payer MEDICAID ==
[~2023-09-08] VITALS: Ht 167.6 cm; Wt 65.9 kg
[~2023-09-08] MED LIST changes: +Acetaminophen 500 MG TAB PO SCH; +Docusate Sodium 100 MG CAP PO SCH; +HYDROmorphone 0.5 MG/0.5 ML SYRINGE IV ONE; +HYDROmorphone 2 MG/1 ML VIAL IV PRN; +Home HYDROcodone/Acetaminophen 5/325 MG #4 TABS/PACK PO ONE; +Ibuprofen 600 MG TAB PO SCH; +Insulin Aspart (NovoLOG) IV ONE; +LR 1,000 ML IV ONE; +LR 1,000 ML IV SCH; +Lidocaine PF 2% (20 MG/ML) 5 ML VIAL ONE; +Meperidine 50 MG/ML 1 ML VIAL IV PRN; +Methylergonovine 0.2 MG/ML 1 ML AMPUL IM ONE; +Morphine 4 MG/ML VIAL IV ONE; +Morphine 4 MG/ML VIAL IV PRN; +Naloxone 0.4 MG/ML VIAL IV PRN; +OCUFLOX OPHTH DR5 ML OS; +Ondansetron 4 MG/2 ML VIAL IV ONE; +Ondansetron 4 MG/2 ML VIAL IV PRN; +Silver Nitrate Applicator 1 Stick TP ONE; +fentaNYL 50 MCG/ML 2 ML VIAL IV ONE; +fentaNYL 50 MCG/ML 2 ML VIAL IV PRN; +fentaNYL 50 MCG/ML 2 ML VIAL ONE; +oxyCODONE 5 MG TAB PO PRN
[2023-09-08 13:59] LABS: BASO % 0.2 % (0.0-2.0); EOS % 0.4 % (0.0-4.0); GRAN # 5.5 K/mm3 (1.4-6.5); GRAN % 60.9 % (42.2-75.2); HEMOGLOBIN 12.5 g/dl (12.5-16.0); LYMPH # 3.1 K/mm3 (1.2-3.4); MEAN CELL VOLUME 88 fl (80.0-100.0); MEAN CORPUSCULAR HEMOGLOBIN 31 pg (27-31); MEAN CORPUSCULAR HGB CONC 36 g/dl (33.0-37.0); MEAN PLATELET VOLUME 10.8 fl (7.4-10.4); MONO # 0.4 K/mm3 (0.1-0.6); MONO % 4.2 % (1.7-9.3); PLATELET COUNT 231 K/mm3 (130-400); RED BLOOD COUNT 4.01 M/mm3 (4.10-5.30)
[2023-09-08 14:00] LABS: HEMATOCRIT 35.2 % (37.0-47.0)
[2023-09-08 14:19] LABS: ALBUMIN 3.1 gm/dL (3.5-5.0); BILIRUBIN,TOTAL 0.4 mg/dL (0.2-1.2); CALCIUM 8.7 mg/dL (8.4-10.2); CREATININE, serum 0.82 mg/dL (0.57-1.11); POTASSIUM 4.2 mmol/L (3.5-4.5); TOTAL PROTEIN 6.5 gm/dL (6.2-8.1)
[2023-09-08 21:13] VITALS: TEMP 97.4
[2023-09-08 23:30] VITALS: BP 145/96; PULSE 101
== END ==
LOC: COL.ER 13:21 → SDCO 20:27
PROVIDERS: Family Medicine
DX: O02.1 Missed abortion (principal); E10.9 Type 1 diabetes mellitus without complications
CPT/HCPCS: J0690; J1170; J1920; J2210; J2270; J2405; J2704; J3010; J7120

== ENCOUNTER 2024-01-15 20:02 | Emergency (ER) | payer MEDICAID ==
[~2024-01-15] VITALS: Ht 167.6 cm; Wt 68.2 kg
[~2024-01-15 20:02] MED LIST changes: -Acetaminophen 500 MG TAB PO SCH; -Docusate Sodium 100 MG CAP PO SCH; -HYDROmorphone 0.5 MG/0.5 ML SYRINGE IV ONE; -HYDROmorphone 2 MG/1 ML VIAL IV PRN; -Home HYDROcodone/Acetaminophen 5/325 MG #4 TABS/PACK PO ONE; -Ibuprofen 600 MG TAB PO SCH; -Insulin Aspart (NovoLOG) IV ONE; -LR 1,000 ML IV ONE; -LR 1,000 ML IV SCH; -Lidocaine PF 2% (20 MG/ML) 5 ML VIAL ONE; -Meperidine 50 MG/ML 1 ML VIAL IV PRN; -Methylergonovine 0.2 MG/ML 1 ML AMPUL IM ONE; -Morphine 4 MG/ML VIAL IV ONE; -Morphine 4 MG/ML VIAL IV PRN; -Naloxone 0.4 MG/ML VIAL IV PRN; -Ondansetron 4 MG/2 ML VIAL IV ONE; -Ondansetron 4 MG/2 ML VIAL IV PRN; -Silver Nitrate Applicator 1 Stick TP ONE; -fentaNYL 50 MCG/ML 2 ML VIAL IV ONE; -fentaNYL 50 MCG/ML 2 ML VIAL IV PRN; -fentaNYL 50 MCG/ML 2 ML VIAL ONE; -oxyCODONE 5 MG TAB PO PRN
[2024-01-15] MEDS ORDERED: LR 1,000 ML IV ONE ×2 (20:45→21:45)
[2024-01-15 20:50] LABS: COLLECTION METHOD CLEAN CATCH
[2024-01-15 20:59] LABS: URINE APPEARANCE CLEAR (CLEAR/HAZY); URINE BLOOD TRACE (NEGATIVE); URINE COLOR YELLOW (YELLOW); URINE GLUCOSE 3+ (NEGATIVE); URINE KETONE 2+ (NEGATIVE); URINE NITRATE NEGATIVE (NEGATIVE); URINE PROTEIN(semi-quant) 1+ (NEGATIVE); URINE UROBILINOGEN 0.2 E.U/dL (0.2-1.0)
[2024-01-15] MEDS ORDERED: Insulin Regular Human (NovoLIN R/HumuLIN R) IV ONE (21:00)
[2024-01-15 21:08] LABS: BASO # 0.1 K/mm3 (0.0-0.2); BASO % 0.6 % (0.0-2.0); EOS # 0.1 K/mm3 (0.0-0.7); GRAN # 4.7 K/mm3 (1.4-6.5); GRAN % 53.2 % (42.2-75.2); HEMATOCRIT 38.2 % (37.0-47.0); HEMOGLOBIN 13.2 g/dl (12.5-16.0); LYMPH # 3.6 K/mm3 (1.2-3.4); LYMPH % 40.7 % (20.0-51.0); MEAN CELL VOLUME 88 fl (80.0-100.0); MEAN CORPUSCULAR HEMOGLOBIN 31 pg (27-31); MEAN CORPUSCULAR HGB CONC 35 g/dl (33.0-37.0); MEAN PLATELET VOLUME 10.7 fl (7.4-10.4); MONO # 0.4 K/mm3 (0.1-0.6); PLATELET COUNT 401 K/mm3 (130-400); RED BLOOD COUNT 4.32 M/mm3 (4.10-5.30); REDCELL DISTRIBUTION WIDTH-CV 12.2 % (11.5-14.5)
[2024-01-15 21:29] LABS: ALBUMIN 3.2 g/dL (3.5-5.0); BILIRUBIN,TOTAL 0.4 mg/dL (0.2-1.2); C-REACTIVE PROTEIN 0.41 mg/dL (0.00-0.50); CALCIUM 9.9 mg/dL (8.4-10.2); CREATININE, serum 1.32 mg/dL (0.57-1.11); POTASSIUM 3.3 mEq/L (3.5-4.5); TOTAL PROTEIN 7.6 g/dl (6.2-8.1)
[2024-01-15] MEDS ORDERED: fentaNYL 50 MCG/ML 2 ML VIAL IV ONE (21:30)
[2024-01-15] MEDS ORDERED: Ondansetron 4 MG/2 ML VIAL IV ONE (21:30)
[2024-01-15] MEDS ORDERED: KRISTALOSE10 GM/PACK (21:43)
[2024-01-15] MEDS ORDERED: ENULOSE10 GM/151 PO (21:44)
[2024-01-15] MEDS ORDERED: UNISOM25 MG PO (21:46)
[2024-01-15] MEDS ORDERED: PRENATAL TABLET PO (21:46)
[2024-01-15] MEDS ORDERED: cefTRIAXone 1 G in Water For Injection,Sterile 10 ML IV ONE (22:15)
[2024-01-15] MEDS ORDERED: ZOFRAN ODT4 MG PO (23:41)
[2024-01-15] MEDS ORDERED: CEPHALEXIN250 M1 PO (23:41)
[2024-01-15 23:52] VITALS: BP 154/89; PULSE 95; TEMP 98.3
== END 2024-01-15 23:52 | disposition home or self-care (01) ==
LOC: COL.ER 20:02
PROVIDERS: Emergency Medicine
DX: N39.0 Urinary tract infection, site not specified (principal); E10.65 Type 1 diabetes mellitus with hyperglycemia; Z88.0 Allergy status to penicillin; Z88.1 Allergy status to other antibiotic agents
CPT/HCPCS: J0696; J1815; J2405; J3010; J7120

== ENCOUNTER 2024-03-06 17:34 | Emergency (ER) | payer MEDICAID ==
[~2024-03-06] VITALS: Ht 198.1 cm; Wt 67.3 kg
[~2024-03-06 17:34] MED LIST changes: +CEPHALEXIN250 M1 PO; +ENULOSE10 GM/151 PO; +KRISTALOSE10 GM/PACK; +PRENATAL TABLET PO; +UNISOM25 MG PO
[2024-03-06 17:45] VITALS: TEMP 98.2
[2024-03-06] MEDS ORDERED: Morphine 4 MG/ML VIAL IV ONE (18:15)
[2024-03-06] MEDS ORDERED: LR 1,000 ML IV ONE (18:15)
[2024-03-06] MEDS ORDERED: Ondansetron 4 MG/2 ML VIAL IV ONE (18:15)
[2024-03-06 18:52] LABS: COLLECTION METHOD CLEAN CATCH
[2024-03-06 18:55] LABS: HEMATOCRIT 37.1 % (37.0-47.0); HEMOGLOBIN 12.6 g/dl (12.5-16.0); MEAN CELL VOLUME 87 fl (80.0-100.0); MEAN CORPUSCULAR HEMOGLOBIN 29 pg (27-31); MEAN CORPUSCULAR HGB CONC 34 g/dl (33.0-37.0); PLATELET COUNT 215 K/mm3 (130-400); RED BLOOD COUNT 4.28 M/mm3 (4.10-5.30)
[2024-03-06 19:01] LABS: URINE APPEARANCE CLEAR (CLEAR/HAZY); URINE BLOOD TRACE (NEGATIVE); URINE COLOR YELLOW (YELLOW); URINE GLUCOSE 3+ (NEGATIVE); URINE KETONE NEGATIVE (NEGATIVE); URINE NITRATE NEGATIVE (NEGATIVE); URINE PROTEIN(semi-quant) TRACE (NEGATIVE); URINE UROBILINOGEN 0.2 E.U/dL (0.2-1.0)
[2024-03-06 19:12] LABS: ALBUMIN 3.5 g/dL (3.5-5.0); BILIRUBIN,TOTAL 0.3 mg/dL (0.2-1.2); CALCIUM 9.8 mg/dL (8.4-10.2); CREATININE, serum 0.88 mg/dL (0.57-1.11); POTASSIUM 3.1 mEq/L (3.5-4.5); TOTAL PROTEIN 6.8 g/dl (6.2-8.1)
[2024-03-06] MEDS ORDERED: Iohexol 300 - 100 ML VIAL IV ONE (19:25)
[2024-03-06 19:26] LABS: LYMPHOCYTE 59 % (20.0-51.0); NEUTROPHILS 39 % (42.0-75.2)
[2024-03-06] MEDS ORDERED: NS 50 ML IV SCH (19:26)
[2024-03-06] MEDS ORDERED: Acetaminophen 500 MG TAB PO ONE (21:45)
[2024-03-06 21:52] VITALS: BP 145/70; PULSE 90
== END 2024-03-06 21:53 | disposition home or self-care (01) ==
LOC: COL.ER 17:34
PROVIDERS: Emergency Medicine
DX: M54.50 Low back pain, unspecified (principal)
CPT/HCPCS: J2270; J2405; J7120; Q9967

== ENCOUNTER 2024-03-23 14:23 | Inpatient (IN) | payer MEDICAID ==
[~2024-03-23] VITALS: Ht 167.6 cm; Wt 69.0 kg
[2024-03-23] MEDS ORDERED: NS 1,000 ML IV ONE (15:00)
[2024-03-23] MEDS ORDERED: Ondansetron 4 MG/2 ML VIAL IV ONE ×2 (15:00→18:00)
[2024-03-23] MEDS ORDERED: Dextrose 50% Water 25 GM/50 ML SYRINGE IV ONE ×2 (15:15→17:00)
[2024-03-23 15:17] LABS: BASO % 0.2 % (0.0-2.0); EOS % 0.1 % (0.0-4.0); GRAN # 8.1 K/mm3 (1.4-6.5); GRAN % 58.8 % (42.2-75.2); HEMOGLOBIN 11.7 g/dl (12.5-16.0); LYMPH # 4.3 K/mm3 (1.2-3.4); LYMPH % 31.2 % (20.0-51.0); MEAN CELL VOLUME 85 fl (80.0-100.0); MEAN CORPUSCULAR HEMOGLOBIN 29 pg (27-31); MEAN CORPUSCULAR HGB CONC 34 g/dl (33.0-37.0); MEAN PLATELET VOLUME 10.4 fl (7.4-10.4); MONO # 1.3 K/mm3 (0.1-0.6); MONO % 9.3 % (1.7-9.3); PLATELET COUNT 380 K/mm3 (130-400); RED BLOOD COUNT 3.98 M/mm3 (4.10-5.30)
[2024-03-23 15:35] LABS: BILIRUBIN,TOTAL 0.4 mg/dL (0.2-1.2); C-REACTIVE PROTEIN 11.52 mg/dL (0.00-0.50); CALCIUM 9.4 mg/dL (8.4-10.2); CREATININE, serum 0.76 mg/dL (0.57-1.11)
[2024-03-23 15:37] LABS: POTASSIUM 2.9 mEq/L (3.5-4.5)
[2024-03-23] MEDS ORDERED: Morphine 4 MG/ML VIAL IV ONE (16:00)
[2024-03-23 16:14] LABS: COLLECTION METHOD CLEAN CATCH
[2024-03-23 16:25] LABS: PH 5.5 (5.0-8.5); URINE APPEARANCE CLOUDY (CLEAR/HAZY); URINE BLOOD 3+ (NEGATIVE); URINE COLOR YELLOW (YELLOW); URINE GLUCOSE 2+ (NEGATIVE); URINE KETONE TRACE (NEGATIVE); URINE NITRATE NEGATIVE (NEGATIVE); URINE PROTEIN(semi-quant) 3+ (NEGATIVE)
[2024-03-23] MEDS ORDERED: NS 100 ML IV SCH (16:56)
[2024-03-23] MEDS ORDERED: Iohexol 300 - 100 ML VIAL IV ONE (16:57)
[2024-03-23 17:14] LABS: MUCOUS PRESENT (NOT PRESENT); URINE BACTERIA MANY /hpf (NONE SEEN); URINE RBC 0-2 /hpf (0-2); URINE WBC >50 /hpf (0-2)
[2024-03-23] MEDS ORDERED: cefTRIAXone 1 G in Water For Injection,Sterile 10 ML IV ONE (17:30)
[2024-03-23] MEDS ORDERED: NEURONTIN600 MG/TAB PO (18:41)
[2024-03-23] MEDS ORDERED: D5 1/2 NS 1,000 ML IV SCH (18:45)
[2024-03-23] MEDS ORDERED: Acetaminophen 325 MG TAB PO PRN (18:45)
[2024-03-23] MEDS ORDERED: Ondansetron 4 MG/2 ML VIAL IV PRN (18:45)
[2024-03-23] MEDS ORDERED: Morphine 4 MG/ML VIAL IV PRN (19:00)
[2024-03-23] MEDS ORDERED: CEFEPIME IV ONE (19:00)
[2024-03-23] MEDS ORDERED: Albuterol/Ipratropium 3 MG-0.5 MG/3 ML Neb Soln IH PRN (19:00)
[2024-03-23] MEDS ORDERED: WATER FOR INJECTION STERILE IV ONE (19:00)
[2024-03-23] MEDS ORDERED: oxyCODONE 5 MG TAB PO PRN (19:00)
[2024-03-23] MEDS ORDERED: Dextrose 50% Water 25 GM/50 ML SYRINGE IV PRN (19:15)
[2024-03-23] MEDS ORDERED: Glucagon 1 MG VIAL IM PRN (19:15)
[2024-03-23] MEDS ORDERED: Dextrose (Glucose) 15 GM (4 x 3.75 GM) Chewable TABLET PACK PO PRN (19:15)
--- NOTE | 2024-03-23 19:31 | NUR ---
REPORT RECIEVED FROM RICK.
[2024-03-23 19:49] VITALS: BP 121/81; PULSE 106; TEMP 98.3
--- NOTE | 2024-03-23 19:52 | NUR ---
PATIENT ADMITTED FROM ED VITAL SIGNS ARE BP 121/81,98.3 TEMP AND 105 PULSE. 98% RA. BG 185. PATIENT AXO X 4
--- NOTE | 2024-03-23 20:00 | NUR ---
CALL PLACED TO [facility]. MAXIPIME DOSAGE CORRECTION MADE.
--- NOTE | 2024-03-23 20:15 | NUR ---
INTAKE ASSESSMENT AND PHYSICAL ASSESSMENT COMPLETE. PATIENT C/O 03/22 FLANK PAIN PRN IV MORPHINE GIVEN. MED REC COMPLETE.
[2024-03-23 21:00] VITALS: BP_SYST 138
[2024-03-23] MEDS ORDERED: Insulin Lispro (HumaLOG) SQ SCH (21:00)
[2024-03-23] MEDS ORDERED: Insulin Glargine-ygfn (Lantus) SQ SCH (21:45)
[2024-03-23 23:12] VITALS: BP 138/91; PULSE 108; PULSE 198; TEMP 98.1
[2024-03-23] MEDS ORDERED: NS & 20 mEq KCl 1,000 ML IV SCH (23:15)
--- NOTE | 2024-03-23 23:30 | NUR ---
CALL PLACED TO HOSPITALIST. PATIENT CONCERNED 5 % DEXTROSE IN NS IVF MAY CAUSE HYPERGLYCEMIA. TORB TO CHECK BG AND IF ABOVE 250, HOSPITALIST WILL ORDER NS IVF INSTEAD. BG RECHECK 295. TORB FOR NS WITH 20 mEq POTASSIUM GIVEN. 4 UNITS SLIDING SCALE INSULIN GIVEN.
[2024-03-24] VITALS (12 sets, daily range): BP systolic 123–140; BP diastolic 79–91; PULSE 104–111; TEMP 98.1–100.9
--- NOTE | 2024-03-24 02:40 | NUR ---
patient c/o 7/10 flank pain and nausea. Prn morphine and zofran given. Will pass to day shift scopolamine patch advised as patient has allergies to many different anti-emetics.
[2024-03-24] MEDS ORDERED: Cefepime 2 G in Water For Injection,Sterile 20 ML IV SCH (03:00)
--- NOTE | 2024-03-24 06:38 | NUR ---
PATIENT C/O 04/22 PAIN. PATIENT HAD EPISODE OF EMESIS. MORPHINE IV GIVEN FOR PAIN.
[2024-03-24 06:46] LABS: BASO % 0.2 % (0.0-2.0); EOS # 0.1 K/mm3 (0.0-0.7); EOS % 0.5 % (0.0-4.0); GRAN # 5.5 K/mm3 (1.4-6.5); GRAN % 59.5 % (42.2-75.2); LYMPH # 2.7 K/mm3 (1.2-3.4); LYMPH % 29.7 % (20.0-51.0); MEAN CELL VOLUME 88 fl (80.0-100.0); MEAN CORPUSCULAR HGB CONC 34 g/dl (33.0-37.0); MEAN PLATELET VOLUME 10.8 fl (7.4-10.4); MONO # 0.9 K/mm3 (0.1-0.6); MONO % 9.4 % (1.7-9.3); PLATELET COUNT 299 K/mm3 (130-400); RED BLOOD COUNT 3.28 M/mm3 (4.10-5.30); REDCELL DISTRIBUTION WIDTH-CV 11.9 % (11.5-14.5)
[2024-03-24 06:47] LABS: HEMATOCRIT 28.7 % (37.0-47.0); HEMOGLOBIN 9.8 g/dl (12.5-16.0); MEAN CORPUSCULAR HEMOGLOBIN 30 pg (27-31)
[2024-03-24 07:07] LABS: ALBUMIN 2.3 g/dL (3.5-5.0); BILIRUBIN,TOTAL 0.4 mg/dL (0.2-1.2); CALCIUM 8.3 mg/dL (8.4-10.2); CREATININE, serum 0.69 mg/dL (0.57-1.11); POTASSIUM 4.6 mEq/L (3.5-4.5); TOTAL PROTEIN 5.1 g/dl (6.2-8.1)
[2024-03-24] MEDS ORDERED: NS 1,000 ML IV SCH (07:30)
[2024-03-24] MEDS ORDERED: Insulin Lispro (HumaLOG) SQ SCH (08:00)
--- NOTE | 2024-03-24 08:58 | NUR ---
[facility]OD [facility] CALLED TO THIS RN AT 0855. THIS RN JUST INFORMED BRANDON NOEL OF BLOOD CULTURE X1 POSITIVE FOR STREP. PER MICRO SAMPLE TO BE PLACED ON THE BIOFIRE FOR FURTHER IDENTIFICATION. NO NEW ORDERS AT THIS TIME.
[2024-03-24] MEDS ORDERED: Gabapentin 300 MG CAP PO SCH (09:00)
[2024-03-24] MEDS ORDERED: Scopolamine 1 MG Delivered 3-Day PATCH TD SCH (09:00)
[2024-03-24] MEDS ORDERED: Prenatal Vitamins/Iron/FA TAB PO SCH (09:00)
--- NOTE | 2024-03-24 10:47 | NUR ---
petroleum refinery worker met with patient to discuss discharge planning. Patient lives in [place] with her 2 year old son and her boyfriend stays with her often. Her boyfriend, Tori, is listed as a contact, P# [phone]. Patient reports her next of kin would be her father, Rachid, P# [phone]. PCP is Dr. Vazquez, Pharmacy is [facility]. Insurance is Medicaid [facility]. Patient reports she is waiting to see if her insurance would cover the cost of an insulin pump but currently she has been able to afford her insulin because it is covered by Medicaid. No DME other than a glucometer. Patient reports to be independent with [facility] and has a form of transportation to get to and from appointments. Patient would like to return home at time of discharge. Patient stated that if she had the choice on the form of antibiotics she would receive she would like IV antibiotics because she feels it clears her infections quicker than the oral. SW explained that would be decided by the physicians, patient understood. Discharge plan: Home patient understood.
--- NOTE | 2024-03-24 15:35 | NUR ---
D: German Instructor stopped by room on rounds. A: Pt was sleeping and content. Pt has no needs right now. P: German Instructor informed pt that if she needed anything from the track coach area to let her nurse know. German Instructor will follow up as needed.
--- NOTE | 2024-03-24 18:24 | NUR ---
PATIENT HAD A NEW 22G PERIPHERAL IV PLACED TO THE LEFT HAND. WHEN RN FLUSHED SALINE, PATIENT STATED IT FELT OK, WHEN RN PUSEHD MORPHINE, PATIENT AGAIN STATED IT FELT FINE. ONCE THIS RN PUSHED SALINE TO FLUSH LINE AFTER MEDICATION, PATIENT SCREAMED AND SAID SHE DOESNT THINK SHE GOT THE MEDICATION AND SAID IT IS PROBABLY BAD YOU HAVE TO TAKE IT OUT., I ASKED IF THE PATIENT WAS SURE OF THIS, THE PATIENT WAS GRABBING HER LEFT ARM SAYIGN "TAKE IT OUT." RN REMOVED IV TO THE LEFT HAND. PATIENT NOW AWAITING IV PLACEMENT. THIS RN BELIEVES PATIENT RECIEVED THE MEDICATION VIA IV. CALL LIGHT OSMAN IRWIN.
[2024-03-24] MEDS ORDERED: Insulin Glargine-ygfn (Lantus) SQ SCH (21:00)
[2024-03-25 00:11] VITALS: BP_SYST 128
--- NOTE | 2024-03-25 00:48 | NUR ---
patient sitting up in bed, alert and oriented x4. denies chest pain and shortness of breath. reports 8/10 pain in back, per request morphine given. scopalomine patch noted behind left ear. pt refused lovenox and has no further needs, questions or concerns at this time. ambulating with steady gait. call light within reach. will continue to monitor.
[2024-03-25 03:27] VITALS: BP 112/80; BP 89/48; PULSE 100; PULSE 72; TEMP 98; TEMP 98.3
[2024-03-25 04:09] VITALS: BP_SYST 112
[2024-03-25 07:46] VITALS: BP 130/86; PULSE 103; TEMP 98.1
[2024-03-25 08:30] VITALS: BP_SYST 130
--- NOTE | 2024-03-25 08:30 | NUR ---
PT SLEEPING IN BED UPON ENTERING ROOM. PT GIVEN GABAPENTIN PER eMAR. PT VOMITED WHEN ATTEMPTING TO SIT UP. SMALL AMOUNT OF VOMIT APPEARED GREEN IN COLOR AND ONE WHITE PILL WAS ALSO IN. PT GIVEN ZOFRAN FOR N/V SX. PT GIVEN MORPHINE FOR L SIDE PAIN AND EPIGASTRIC PAIN FROM VOMITING. SCOPOLAMINE PATCH IN PLACE BEHIND L EAR. ALL OTHER MEDS GIVEN PER eMAR. CALL LIGHT WITHIN REACH.
--- NOTE | 2024-03-25 09:30 | NUR ---
PT PAIN REASSESSED. PT STATES THEIR PAIN HAS IMPROVED TO A 2/10. PT ATTEMPTING TO EAT BREAKFAST AT THIS TIME. NO FURTHER CONCERNS.
--- NOTE | 2024-03-25 09:31 | NUR ---
PATIENT ASLEEP IN BED UPON ENTERING ROOM. MORNING MEDICATIONS ADMINISTERED BY PRATIK GOLDMAN. THIS RN ASSESSED PATIENT ALONGSIDE SUSI AND AGREES WITH HER CHARTED ASSESSMENT. PATIENT EXPERIENCED NAUSEA AND VOMITING AFTER RECEIVING MORNING MEDICATIONS. ZOFRAN ADMINITERED. PATIENT THEN COMPLAINS OF 8/10 L FLANK PAIN, MORPHINE ADMINISTERED. UPDATED ON PLAN OF CARE. PATIENT REQUESTS WE USE HER HOME VITAMINS, NEW ORDER PLACED AND PHARMACY NOTIFIED. PATIENT DENIES ANY ADDITONAL NEEDS AT THIS TIME. WILL CONTINUE TO MONITOR.
[2024-03-25] MEDS ORDERED: ZOFRAN ODT4 MG PO ×2 (11:10→12:10)
[2024-03-25] MEDS ORDERED: ROXICODONE 55 MG/TAB PO (11:11)
[2024-03-25] MEDS ORDERED: CIPRO 500M500 MG/5 M PO (11:18)
[2024-03-25] MEDS ORDERED: TRANSDERM-0.5 MG/21 TD (11:21)
--- NOTE | 2024-03-25 12:50 | NUR ---
PT GIVEN DISCHARGE INSTRUCTIONS AND EDUCATION AT THIS TIME. PT GIVEN HOME MEDS AND SIGNED APPROPRIATE FORM. NO QUESTIONS AT THIS TIME.
[2024-03-26] MEDS ORDERED: Patient's Own Medication Item PO SCH (09:00)
== END 2024-03-25 13:00 | disposition home or self-care (01) | DRG 872 ==
LOC: COL.ER 14:23 → MEDICAL 18:29
PROVIDERS: Nurse Practitioner; Physician Assistant; ADMIT Internal Medicine
DX: A40.9 Streptococcal sepsis, unspecified (principal); E10.649 Type 1 diabetes mellitus with hypoglycemia without coma; Z79.4 Long term (current) use of insulin; E87.6 Hypokalemia; E10.40 Type 1 diabetes mellitus with diabetic neuropathy, unspecified
CPT/HCPCS: J0692; J0696; J1815; J2270; J2405; J3480; J7030; Q9967

== ENCOUNTER 2024-05-17 19:25 | Emergency (ER) | payer MEDICAID ==
[~2024-05-17] VITALS: Ht 165.1 cm; Wt 67.3 kg
[~2024-05-17 19:25] MED LIST changes: +CIPRO 500M500 MG/5 M PO; +NEURONTIN600 MG/TAB PO; +TRANSDERM-0.5 MG/21 TD
[2024-05-17] MEDS ORDERED: NS 1,000 ML IV ONE (19:45)
[2024-05-17] MEDS ORDERED: Ondansetron 4 MG/2 ML VIAL IV ONE (19:45)
[2024-05-17 20:02] LABS: COLLECTION METHOD CLEAN CATCH
[2024-05-17 20:06] LABS: BASO % 0.3 % (0.0-2.0); EOS # 0.1 K/mm3 (0.0-0.7); EOS % 1.1 % (0.0-4.0); GRAN # 4.3 K/mm3 (1.4-6.5); GRAN % 54.4 % (42.2-75.2); LYMPH # 3.2 K/mm3 (1.2-3.4); LYMPH % 40.5 % (20.0-51.0); MEAN CELL VOLUME 88 fl (80.0-100.0); MEAN CORPUSCULAR HEMOGLOBIN 30 pg (27-31); MEAN CORPUSCULAR HGB CONC 34 g/dl (33.0-37.0); MEAN PLATELET VOLUME 11.5 fl (7.4-10.4); MONO # 0.3 K/mm3 (0.1-0.6); MONO % 3.6 % (1.7-9.3); PLATELET COUNT 267 K/mm3 (130-400); RED BLOOD COUNT 3.97 M/mm3 (4.10-5.30)
[2024-05-17 20:12] LABS: PH 5.5 (5.0-8.5); URINE APPEARANCE CLEAR (CLEAR/HAZY); URINE BLOOD 2+ (NEGATIVE); URINE COLOR YELLOW (YELLOW); URINE GLUCOSE 3+ (NEGATIVE); URINE KETONE TRACE (NEGATIVE); URINE NITRATE POSITIVE (NEGATIVE); URINE PROTEIN(semi-quant) 2+ (NEGATIVE); URINE UROBILINOGEN 0.2 E.U/dL (0.2-1.0)
[2024-05-17] MEDS ORDERED: Acetaminophen 500 MG TAB PO ONE (20:30)
[2024-05-17 20:32] LABS: ALANINE AMINOTRANSFERASE 12 U/L (0-55); ALBUMIN 3.3 g/dL (3.5-5.0); ALKALINE PHOSPHATASE 114 U/L (40-150); ANION GAP 16 mmol/L (7-16); AST,SGOT 14 U/L (5-34); BLOOD UREA NITROGEN 25 mg/dL (7-19); CALCIUM 8.6 mg/dL (8.4-10.2); CHLORIDE 101 mEq/L (98-107); CREATININE, serum 0.92 mg/dL (0.57-1.11); GLUCOSE 383 mg/dL (70-99); POTASSIUM 4.1 mEq/L (3.5-4.5); SODIUM 134 mEq/L (136-145); TOTAL PROTEIN 6.7 g/dl (6.2-8.1)
[2024-05-17 20:44] LABS: LIPASE 9 U/L (8-78)
[2024-05-17] MEDS ORDERED: NS 100 ML IV ONE (20:44)
[2024-05-17] MEDS ORDERED: Iohexol 300 - 100 ML VIAL IV ONE (20:44)
[2024-05-17 20:55] LABS: BILIRUBIN,TOTAL < 0.5 mg/dL (0.2-1.2)
[2024-05-17 21:03] LABS: URINE BACTERIA MANY /hpf (NONE SEEN); URINE WBC 0-2 /hpf (0-2)
[2024-05-17] MEDS ORDERED: cefTRIAXone 1 G in Water For Injection,Sterile 10 ML IV ONE (21:30)
[2024-05-17] MEDS ORDERED: CEFTIN500 MG PO (21:36)
[2024-05-17] MEDS ORDERED: ZOFRAN ODT4 MG PO (21:36)
[2024-05-17] MEDS ORDERED: Home Ondansetron ODT 4 MG #2 ODT/PACK PO ONE (21:45)
[2024-05-17 21:50] VITALS: BP 116/86; PULSE 100; TEMP 98
[2024-05-17] MEDS ORDERED: DIFLUCAN150 MG PO (21:54)
== END 2024-05-17 21:50 | disposition home or self-care (01) ==
LOC: COL.ER 19:25
PROVIDERS: Nurse Practitioner Primary Care
DX: N39.0 Urinary tract infection, site not specified (principal); Z88.0 Allergy status to penicillin; Z88.1 Allergy status to other antibiotic agents
CPT/HCPCS: J0696; J2405; J7030; Q9967

== ENCOUNTER → 2024-06-01 | Outpatient (CLI) | payer MEDICAID ==
[~2024-06-01] MED LIST changes: +CEFTIN500 MG PO
== END ==
LOC: COL.RAD 10:30
DX: R10.9 Unspecified abdominal pain (principal)

== ENCOUNTER 2024-06-16 23:19 | Emergency (ER) | payer MEDICAID ==
[~2024-06-16] VITALS: Ht 165.1 cm; Wt 65.9 kg
[2024-06-16 23:28] VITALS: TEMP 97
[2024-06-16] MEDS ORDERED: Ondansetron 4 MG/2 ML VIAL IV ONE (23:45)
[2024-06-16] MEDS ORDERED: Morphine 4 MG/ML VIAL IV ONE (23:45)
[2024-06-16] MEDS ORDERED: LR 1,000 ML IV ONE (23:45)
[2024-06-16 23:49] LABS: COLLECTION METHOD CLEAN CATCH
[2024-06-16 23:53] LABS: BASO % 0.4 % (0.0-2.0); EOS # 0.1 K/mm3 (0.0-0.7); EOS % 0.9 % (0.0-4.0); GRAN # 3.6 K/mm3 (1.4-6.5); GRAN % 44.9 % (42.2-75.2); HEMOGLOBIN 12.8 g/dl (12.5-16.0); LYMPH # 3.8 K/mm3 (1.2-3.4); LYMPH % 47.2 % (20.0-51.0); MEAN CELL VOLUME 88 fl (80.0-100.0); MEAN CORPUSCULAR HEMOGLOBIN 31 pg (27-31); MEAN CORPUSCULAR HGB CONC 35 g/dl (33.0-37.0); MEAN PLATELET VOLUME 10.6 fl (7.4-10.4); MONO # 0.5 K/mm3 (0.1-0.6); MONO % 6.3 % (1.7-9.3); PLATELET COUNT 240 K/mm3 (130-400); RED BLOOD COUNT 4.19 M/mm3 (4.10-5.30)
[2024-06-17 00:11] LABS: ALBUMIN 3.9 g/dL (3.5-5.0); BILIRUBIN,TOTAL 0.2 mg/dL (0.2-1.2); CALCIUM 9.6 mg/dL (8.4-10.2); CREATININE, serum 0.75 mg/dL (0.57-1.11); TOTAL PROTEIN 7.1 g/dl (6.2-8.1)
[2024-06-17 00:27] LABS: URINE APPEARANCE CLEAR (CLEAR/HAZY); URINE BLOOD 1+ (NEGATIVE); URINE COLOR YELLOW (YELLOW); URINE GLUCOSE NEGATIVE (NEGATIVE); URINE KETONE TRACE (NEGATIVE); URINE NITRATE NEGATIVE (NEGATIVE); URINE PROTEIN(semi-quant) 3+ (NEGATIVE)
[2024-06-17] MEDS ORDERED: Iohexol 300 - 100 ML VIAL IV ONE (00:40)
[2024-06-17] MEDS ORDERED: NS 50 ML IV SCH (00:50)
[2024-06-17] MEDS ORDERED: Ondansetron 4 MG/2 ML VIAL IV ONE (01:15)
[2024-06-17 01:51] VITALS: BP 146/100; PULSE 102
== END 2024-06-17 01:51 | disposition home or self-care (01) ==
LOC: COL.ER 23:19
PROVIDERS: Emergency Medicine
DX: R10.31 Right lower quadrant pain (principal)
CPT/HCPCS: J2270; J2405; J7120; Q9967

== ENCOUNTER 2024-06-25 16:03 | Emergency (ER) | payer MEDICAID ==
[~2024-06-25] VITALS: Ht 162.6 cm; Wt 65.0 kg
[2024-06-25 16:15] VITALS: TEMP 98.4
[2024-06-25] MEDS ORDERED: NS 1,000 ML IV ONE (19:00)
[2024-06-25 19:03] LABS: COLLECTION METHOD CLEAN CATCH
[2024-06-25 19:05] LABS: BASO % 0.6 % (0.0-2.0); EOS # 0.1 K/mm3 (0.0-0.7); GRAN # 2.7 K/mm3 (1.4-6.5); GRAN % 40.4 % (42.2-75.2); HEMOGLOBIN 12.2 g/dl (12.5-16.0); LYMPH # 3.7 K/mm3 (1.2-3.4); LYMPH % 53.9 % (20.0-51.0); MEAN CELL VOLUME 87 fl (80.0-100.0); MEAN CORPUSCULAR HEMOGLOBIN 31 pg (27-31); MEAN CORPUSCULAR HGB CONC 35 g/dl (33.0-37.0); MEAN PLATELET VOLUME 10.9 fl (7.4-10.4); MONO # 0.3 K/mm3 (0.1-0.6); PLATELET COUNT 243 K/mm3 (130-400); REDCELL DISTRIBUTION WIDTH-CV 12.6 % (11.5-14.5)
[2024-06-25 19:08] LABS: HEMATOCRIT 34.7 % (37.0-47.0)
[2024-06-25 19:12] LABS: URINE APPEARANCE CLEAR (CLEAR/HAZY); URINE BLOOD TRACE (NEGATIVE); URINE COLOR YELLOW (YELLOW); URINE GLUCOSE 3+ (NEGATIVE); URINE KETONE NEGATIVE (NEGATIVE); URINE NITRATE NEGATIVE (NEGATIVE); URINE PROTEIN(semi-quant) 2+ (NEGATIVE); URINE UROBILINOGEN 0.2 E.U/dL (0.2-1.0)
[2024-06-25 19:23] LABS: ALBUMIN 3.5 g/dL (3.5-5.0); BILIRUBIN,TOTAL 0.3 mg/dL (0.2-1.2); CALCIUM 9.6 mg/dL (8.4-10.2); CREATININE, serum 0.72 mg/dL (0.57-1.11); TOTAL PROTEIN 6.7 g/dl (6.2-8.1)
[2024-06-25] MEDS ORDERED: fentaNYL 50 MCG/ML 2 ML VIAL IV ONE (19:45)
[2024-06-25] MEDS ORDERED: NS 50 ML IV SCH (20:28)
[2024-06-25] MEDS ORDERED: Iohexol 300 - 100 ML VIAL IV ONE (20:28)
[2024-06-25] MEDS ORDERED: BACTRIM DS 8001 TAB PO (22:37)
[2024-06-25] MEDS ORDERED: NORCO 325 MG-51 TAB PO (22:37)
[2024-06-25] MEDS ORDERED: Sulfamethoxazole/Trimethoprim 800-160 MG TAB PO ONE (22:45)
[2024-06-25 22:56] VITALS: BP 141/99; PULSE 96
== END 2024-06-25 22:56 | disposition home or self-care (01) ==
LOC: COL.ER 16:03
PROVIDERS: Family Medicine
DX: N39.0 Urinary tract infection, site not specified (principal); Z88.0 Allergy status to penicillin; Z88.1 Allergy status to other antibiotic agents
CPT/HCPCS: J3010; J7030; Q9967

== ENCOUNTER 2024-06-30 10:35 | Emergency (ER) | payer MEDICAID ==
[~2024-06-30] VITALS: Ht 165.1 cm; Wt 61.4 kg
[2024-06-30 10:47] VITALS: TEMP 97.8
[2024-06-30] MEDS ORDERED: dexAMETHasone 10 MG/ML VIAL IM ONE (11:15)
[2024-06-30 12:00] VITALS: BP 107/71; PULSE 99
== END 2024-06-30 12:00 | disposition home or self-care (01) ==
LOC: COL.ER 10:35
DX: L23.7 Allergic contact dermatitis due to plants, except food (principal)
CPT/HCPCS: J1100